=== PATIENT | male | born 1965 | race Caucasian/White ===

== ENCOUNTER 2021-09-07 17:24 | Emergency (ER) | payer MEDICARE, MEDICAID, SELFPAY ==
[2021-09-07 17:38] VITALS: BP 127/76; BP 138/101; PULSE 104; PULSE 115; RESP 18; TEMP 37.3; O2SAT 94; O2SAT 95; BMI 27.3
--- NOTE | 2021-09-07 17:39 | ED_ITS ---
HPI - Male Genitourinary General Chief complaint: Abdominal Pain Stated complaint: difficulty urinating Time Seen by Provider: 09/07/21 17:39 Source: patient Mode of arrival: ambulatory Limitations: no limitations History of Present Illness HPI Narrative: Patient with significant past medical history of Erdhein- Rankin disease hypertension hydrocephalus hyponatremia diabetes anemia encephalopathy, optic neuropathy with history of recurrent UTI started on Augmentin for recent UTI since yesterday patient unable to urinate and is brought here a temperature of 101.4 degrees patient just finished a course of Bactrim last week. No vomiting no abdominal pain Related Data Previous Rx's Medication Instructions Recorded ciprofloxacin HCl 500 mg tablet 500 mg PO BID #20 tab 09/07/21 (Cipro) Allergies Allergy/AdvReac Type Severity Reaction Status Date / Time No Known Allergies Allergy Verified 09/07/21 17:49 Review of Systems Review of Systems: Yes all other systems are reviewed and are negative [facility] Past Medical History Medical History Alternating esotropia Anemia Diabetes Diplopia Encephalopathy Erdheim-Marlon disease HTN (hypertension) Hydrocephalus Hypogonadism in male Hyponatremia Hypothyroidism Iron malabsorption Optic neuropathy of both eyes Osteopenia Pituitary insufficiency Social History Social History Alcohol intake: never Patient Tobacco Use Status: Never used Tobacco Use of substances other than those prescribed or required for medical reasons: No Advance Directives: No Advance Directives Information Provided: No Physical Exam Vital Signs: Vital Signs: Last Vital Signs Temp 99.2 F 09/07/21 18:00 Pulse 103 H 09/07/21 20:00 Resp 18 09/07/21 18:00 BP 92/64 09/07/21 20:00 Pulse Ox 92 09/07/21 20:00 BMI result Body Mass Index 27.3 Appearance: Alert. Oriented X3. Complaining of pain in abdomen Eyes: PERRLA, No Nystagmus ENT: Pharynx normal. Oral Mucosa moist Neck: Normal inspection. Neck supple. CVS: Normal heart rate and rhythm. Pulses normal. Respiratory: No respiratory distress. Equal air entry bilateral, no wheezing/rales/rhonchi Abdomen: Soft and nontender. Bowel sounds are present, no mass palpable, no CVA tenderness Skin: Skin warm and dry. Normal skin color. Normal skin turgor. Extremities: No lower extremity edema. No calf tenderness Neuro: Oriented X 3. No motor deficit. No sensory deficit.No cerebellar signs , cranial nerves II-XII intact MDM - Male Genitourinary Differential Diagnosis Differential diagnosis: Likely urinary tract infection Lab Data Attestation: I reviewed the patient's lab results. Result diagrams: 09/07/21 19:08 09/07/21 19:08 Labs: Lab Results 09/07/21 09/07/21 09/07/21 Range/Units 19:08 19:08 19:08 WBC 16.8 H (4.8-10.8) X10*3/uL RBC 5.03 (4.60-5.80) X10*6/uL Hgb 13.7 L (14.0-18.0) g/dl Hct 43.4 (42.0-52.0) % MCV 86.3 (80.0-98.0) fL MCH 27.2 (27.0-33.0) pg MCHC 31.6 (31.0-36.0) g/dl RDW 16.8 H (11.0-16.0) % Plt Count 336 (160-400) X10*3/uL MPV 8.8 L (9.4-12.4) fL Immature Gran % (Auto) 1.0 H (0.0-0.4) % Neut % (Auto) 66.5 (45-73) % Lymph % (Auto) 22.4 (20-40) % [place] % (Auto) 7.3 (2-11) % Eos % (Auto) 2.0 (0-4) % Baso % (Auto) 0.8 (0-2) % Lymph # (Auto) 3.8 (1.2-4.9) X10*3/uL [place] # (Auto) 1.2 (0.1-1.2) X10*3/uL Eos # (Auto) 0.3 (0.0-0.4) X10*3/uL Baso # (Auto) 0.1 (0.0-0.2) X10*3/uL Abs Immat Gran (auto) 0.17 H (0.00-0.03) X10*3/uL Absolute Neuts (auto) 11.2 H (2.0-8.3) x10*3/uL Absolute Nucleated RBC 0.000 (0.0-0.012) X10*3/uL Nucleated RBC % (auto) 0.0 (0.0-0.2) /100WBC Sodium 139 (135-145) mmol/L Potassium 4.6 (3.3-5.1) mmol/L Chloride 107 (96-108) mmol/L Carbon Dioxide 25 (22-29) mmol/L Anion Gap 12 (12-20) BUN 24 H (9-16) mg/dL Creatinine 1.57 H (0.5-1.4) mg/dL Estim Creat Clear Calc 51.2 Estimated GFR 46 Random Glucose 97 (60-115) mg/dL Lactic Acid 1.0 (0.5-2.0) mmol/L Calcium 8.4 (8.4-10.2) mg/dL Total Bilirubin 0.5 (0.0-1.0) mg/dL AST 17 (5-37) U/L ALT 20 (0-40) U/L Alkaline Phosphatase 93 (39-117) U/L Total Protein 6.9 (6.5-8.0) g/dL Albumin 3.6 (3.5-5.0) g/dL Urine Color Urine Appearance Urine pH (5.0-8.0) Ur Specific [place] (1.005-1.025) Urine Protein (NEG-TRACE) MG/DL Urine Glucose (UA) (NEG) MG/DL Urine Ketones (NEG) MG/DL Urine Blood (NEG) Urine Nitrite (NEG) Ur Leukocyte Esterase (NEG) Urine RBC (0) /HPF Urine WBC (0-4) /HPF Ur Squamous Epith Cells /LPF Urine Bacteria /LPF COVID-19 (ELENO) (Negative) COVID-19 Clin Com 09/07/21 09/07/21 Range/Units 19:08 20:12 WBC (4.8-10.8) X10*3/uL RBC (4.60-5.80) X10*6/uL Hgb (14.0-18.0) g/dl Hct (42.0-52.0) % MCV (80.0-98.0) fL MCH (27.0-33.0) pg MCHC (31.0-36.0) g/dl RDW (11.0-16.0) % Plt Count (160-400) X10*3/uL MPV (9.4-12.4) fL Immature Gran % (Auto) (0.0-0.4) % Neut % (Auto) (45-73) % Lymph % (Auto) (20-40) % [place] % (Auto) (2-11) % Eos % (Auto) (0-4) % Baso % (Auto) (0-2) % Lymph # (Auto) (1.2-4.9) X10*3/uL [place] # (Auto) (0.1-1.2) X10*3/uL Eos # (Auto) (0.0-0.4) X10*3/uL Baso # (Auto) (0.0-0.2) X10*3/uL Abs Immat Gran (auto) (0.00-0.03) X10*3/uL Absolute Neuts (auto) (2.0-8.3) x10*3/uL Absolute Nucleated RBC (0.0-0.012) X10*3/uL Nucleated RBC % (auto) (0.0-0.2) /100WBC Sodium (135-145) mmol/L Potassium (3.3-5.1) mmol/L Chloride (96-108) mmol/L Carbon Dioxide (22-29) mmol/L Anion Gap (12-20) BUN (9-16) mg/dL Creatinine (0.5-1.4) mg/dL Estim Creat Clear Calc Estimated GFR Random Glucose (60-115) mg/dL Lactic Acid (0.5-2.0) mmol/L Calcium (8.4-10.2) mg/dL Total Bilirubin (0.0-1.0) mg/dL AST (5-37) U/L ALT (0-40) U/L Alkaline Phosphatase (39-117) U/L Total Protein (6.5-8.0) g/dL Albumin (3.5-5.0) g/dL Urine Color ORANGE A Urine Appearance HAZY Urine pH 7.0 (5.0-8.0) Ur Specific [place] 1.020 (1.005-1.025) Urine Protein 3+ H (NEG-TRACE) MG/DL Urine Glucose (UA) 100 H (NEG) MG/DL Urine Ketones NEG (NEG) MG/DL Urine Blood 3+ H (NEG) Urine Nitrite POS H (NEG) Ur Leukocyte Esterase 2+ H (NEG) Urine RBC 50-75 H (0) /HPF Urine WBC TNTC H (0-4) /HPF Ur Squamous Epith Cells NONE /LPF Urine Bacteria TRACE /LPF COVID-19 (ELENO) Negative (Negative) COVID-19 Clin Com See Note Discharge Plan Discharge Clinical Impression: UTI (urinary tract infection), Acute urinary retention Patient Disposition: Home, Self-Care Instructions: Urinary Retention in Men (ED), Urinary Tract Infection in Men (DC ) Additional Instructions: Care of Abdul catheter as advised Follow-up with PCP to remove the Abdul catheter after end of antibiotic course Report to the ER/PCP if high fever vomiting not feeling good Take antibiotics as prescribed Prescriptions: New ciprofloxacin HCl [Cipro] 500 mg tablet 500 mg PO BID Qty: 20 0RF Interventions: ED Discharge Assessment Last Done: 09/07/21 21:50 Discharge Date/Time: 09/07/21 21:50
[2021-09-07 18:00] VITALS: BP 127/76; PULSE 104; RESP 18; TEMP 37.3; O2SAT 94
[2021-09-07] MEDS: 0.9 % Sodium Chloride 1,000 ML 999 ML IV (19:04)
[2021-09-07 19:15] LABS: Basophils Absolute Auto 0.1 X10*3/uL (0.0-0.2); Basophils Percent Auto 0.8 % (0-2); Eosinophils Absolute Auto 0.3 X10*3/uL (0.0-0.4); Hematocrit 43.4 % (42.0-52.0); Hemoglobin 13.7 g/dl (14.0-18.0); Imm Gran Abs Auto 0.17 X10*3/uL (0.00-0.03); Lymphocytes Absolute Auto 3.8 X10*3/uL (1.2-4.9); Lymphocytes Percent Auto 22.4 % (20-40); MANUAL DIFF FLAG NO; Mean Corpuscular HGB Conc 31.6 g/dl (31.0-36.0); Mean Corpuscular Hemoglobin 27.2 pg (27.0-33.0); Mean Corpuscular Volume 86.3 fL (80.0-98.0); Mean Platelet Volume 8.8 fL (9.4-12.4); Monocytes Absolute Auto 1.2 X10*3/uL (0.1-1.2); Monocytes Percent Auto 7.3 % (2-11); Neutrophils Absolute Auto 11.2 x10*3/uL (2.0-8.3); Neutrophils Percent Auto 66.5 % (45-73); Platelet Count 336 X10*3/uL (160-400); Red Blood Count 5.03 X10*6/uL (4.60-5.80); Red Cell Distribution Width 16.8 % (11.0-16.0); White Blood Count 16.8 X10*3/uL (4.8-10.8)
[2021-09-07 19:32] LABS: Alanine Aminotransferase 20 U/L (0-40); Albumin Level 3.6 g/dL (3.5-5.0); Alkaline Phosphatase 93 U/L (39-117); Anion Gap 12 (12-20); Aspartate Amino Transferase 17 U/L (5-37); Bilirubin Total 0.5 mg/dL (0.0-1.0); Blood Urea Nitrogen 24 mg/dL (9-16); Calcium 8.4 mg/dL (8.4-10.2); Carbon Dioxide 25 mmol/L (22-29); Chloride 107 mmol/L (96-108); Creatinine Clr Calc Pharmacy 51.2; Estimated Glomerular Filt Rate 46; Glucose Random 97 mg/dL (60-115); Potassium 4.6 mmol/L (3.3-5.1); Sodium 139 mmol/L (135-145); Total Protein 6.9 g/dL (6.5-8.0)
[2021-09-07 19:35] LABS: COVID-19 Test Negative (Negative)
[2021-09-07 20:00] VITALS: BP 92/64; PULSE 103; O2SAT 92
--- NOTE | 2021-09-07 20:15 | PC.NURSE ---
pt a&ox3, vss, IV flds started, hou catheter 16F placed, medicated per provider order, will continue to monitor. at bedside.
[2021-09-07] MEDS: cefTRIAXone sodium 1 GM in 0.9 % Sodium Chloride 50 ML IV (20:20)
--- NOTE | 2021-09-07 20:20 | PC.NURSE ---
pt ivf continue to run slowly, pt reminded to keep arm straight, iv antibiotics hung per order
[2021-09-07 20:30] LABS: Appearance Urine HAZY; Color Urine ORANGE; Glucose Urine UA 100 MG/DL (NEG); Leukocyte Esterase Urine 2+ (NEG); Nitrite Urine POS (NEG); UACC Culture Trigger YES; Urine Blood 3+ (NEG); Urine Ketones NEG (NEG); Urine Protein 3+ MG/DL (NEG-TRACE)
[2021-09-07 20:38] LABS: RBC Urine 50-75 /HPF (0); WBC Urine TNTC /HPF (0-4)
[2021-09-07 20:39] LABS: Bacteria Urine TRACE /LPF
== END 2021-09-07 21:50 | disposition home or self-care (01) ==
PROVIDERS: Emergency Provider Internal Medicine
DX: N39.0 Urinary tract infection, site not specified (principal); R33.9 Retention of urine, unspecified; R50.9 Fever, unspecified; Z20.822 Contact with and (suspected) exposure to COVID-19; Z87.440 Personal history of urinary (tract) infections; E11.9 Type 2 diabetes mellitus without complications; I10 Essential (primary) hypertension
CPT/HCPCS: 51702; 80053; 81001; 83605; 85025; 87040; 87086; 87635; 96361; 96374; 99284; 99285; J0696

== ENCOUNTER 2023-04-08 18:35 | Inpatient (IN) | payer MEDICARE, MEDICAID, SELFPAY ==
[2023-04-08] VITALS (10 sets, daily range): BP systolic 74–123; BP diastolic 43–68; PULSE 77–96; RESP 14–19; TEMP 36.6–36.9; O2SAT 96–100; BMI 21.0
--- NOTE | ~2023-04-08 | XR_ITS ---
EXAMINATION: XR CHEST CLINICAL INFORMATION: Hypotension COMPARISON: None available. TECHNIQUE: Frontal view of the chest was obtained. FINDINGS: Ventriculoperitoneal shunt catheter partially visualized coursing over the right chest wall and terminating over the left upper abdomen. Lung volumes with left greater than right basilar reticular opacities, may represent atelectasis. No focal consolidation. No pleural effusion or pneumothorax. Aortic arch calcification with otherwise normal heart size and mediastinal contours. XR/XR chest 1V IMPRESSION: Low lung volumes with left greater than right basilar reticular opacities, likely atelectasis.
--- NOTE | 2023-04-08 19:13 | PC.NURSE ---
Pt BIBA for low BP 80/49, received 350ns bolus prior to arrival. EKG complete, New BP 77/52HR 99, notified.
--- NOTE | 2023-04-08 19:33 | PC.NURSE ---
20 G IV line established in R forearm, labs drawn and sent to lab for processing. 1 L NS running, BP improving 90/56, P 83. Patient denies chest pain/dizziness/lightheadedness/SOB. Patient requested urinal which was provided to patient. Patient's spouse called and informed that she is on her way to ED. Call hancock placed within patient's reach.
--- NOTE | 2023-04-08 19:45 | ED.GENADULT ---
HPI - General Adult General Chief complaint: General Medical Stated complaint: Hypotension Time Seen by Provider: 04/08/23 19:29 Source: patient, EMS and old records reviewed Mode of arrival: EMS Limitations: no limitations History of Present Illness HPI narrative: A 58-year-old male with pertinent past medical history of Erdheim Vigo disease, hypertension, hydrocephalus, hyponatremia, DM, anemia, encephalopathy, optic neuropathy, recurrent UTI, dehydration presented by EMS from home for low blood pressure. Patient declined any subjective fever or chills, no blurry vision, no photophobia, no chest pain, no coughing, no abdominal pain, no nausea, no vomiting, no diarrhea, no dysuria or frequency urination. Related Data Previous Rx's Medication Instructions Recorded ciprofloxacin HCl 500 mg tablet 500 mg PO BID #20 tabs 09/07/21 (Cipro) Allergies Allergy/AdvReac Type Severity Reaction Status Date / Time No Known Allergies Allergy Verified 09/07/21 17:49 Review of Systems Review of Systems: all other systems are reviewed and are negative Constitutional: Reports as per HPI and Reports no additional constitutional complaints Eyes: Reports as per HPI and Reports no additional eye complaints Reports system reviewed and no additional complaints, except as documented Cardiovascular: Reports as per HPI and Reports no additional cardiovascular complaints Respiratory: Reports as per HPI and Reports no additional respiratory complaints Gastrointestinal: Reports as per HPI and Reports no additional gastrointestinal complaints Genitourinary: Reports no additional female genitourinary complaints Musculoskeletal: Reports no additional musculoskeletal complaints Skin/Breast: Reports system reviewed and no additional complaints, except as docu Psychiatric: Reports no additional psychiatric complaints Endocrine: Reports no additional endocrine complaints Hematologic/Lymphatic: Reports no additional hematologic/lymphatic complaints Allergic/Immunologic: Reports no additional allergic/immunologic complaints Reports system reviewed and no additional complaints, except as documented and Reports Abnormal speech present [facility] Past Medical History Medical History HTN (hypertension) Encephalopathy Hyponatremia Hydrocephalus Optic neuropathy of both eyes Diplopia Alternating esotropia Anemia Iron malabsorption Osteopenia Hypothyroidism Diabetes Hypogonadism in male Pituitary insufficiency Erdheim-Vigo disease Social History Social History Alcohol intake: never Patient Tobacco Use Status: Never used Tobacco Smoked in Last 30 Days: No Advance Directives: No Advance Directives Information Provided: Yes Physical Exam ED Vital Signs: Vital Signs - 24 hr 04/08/23 19:04 04/08/23 19:17 04/08/23 19:32 Temperature 98.4 F Pulse Rate 92 96 92 Respiratory Rate 15 19 Blood Pressure 74/43 L 77/52 L 83/56 L Pulse Oximetry 96 98 Oxygen Delivery Method Room Air 04/08/23 19:46 04/08/23 20:19 04/08/23 21:42 Temperature Pulse Rate 79 80 Respiratory Rate 14 Blood Pressure 90/56 L 106/62 113/62 Pulse Oximetry Oxygen Delivery Method 04/08/23 21:49 04/08/23 22:21 Temperature 98.4 F 97.9 F Pulse Rate 81 78 Respiratory Rate 19 15 Blood Pressure 101/68 123/61 Pulse Oximetry 100 99 Oxygen Delivery Method Room Air Room Air BMI result Body Mass Index 21.0 Vital signs have been reviewed and appear to be correct. Blood pressure low. Heart rate normal. Respiratory rate normal. Temperature normal. Oxygen saturation normal. Appearance: Alert. Oriented X3. No acute distress. Head: Normal external exam. Normocephalic. Atraumatic. No Dozier signs noted. No raccoon eyes noted Eyes: PERRLA. EOMI. Conjunctiva and sclera normal. Eyelids normal. ENT: TM's Normal. Pharynx normal. Uvula midline. Moist mucous membranes. No trismus noted. No drooling noted. No muffled voice noted. Neck: Normal inspection. Neck supple. FROM. No adenopathy. Thyroid Normal. No meningeal signs. No neck mass noted. CVS: Normal heart rate and rhythm. Heart sound normal. No murmurs noted. Pulses normal throughout. Respiratory: No respiratory distress. Painless inspiration. Breath sounds normal. No wheezes/rales/rhonchi noted. Chest nontender. No accessory muscle usage noted or decreased air movement noted. Abdomen: Soft and nontender. Bowel sounds normal in all 4 quadrants. No distention noted. No organomegaly noted. No visible injury noted. Back: No CVA tenderness. Full range of motion noted. Skin: Skin warm and dry. Normal skin color. Normal skin turgor. No rashes/lesions/lacerations noted. Extremities: No lower extremity edema. Extremities exhibit normal range of motion. Extremities nontender. Neuro: Oriented X 3. Cranial nerve exam: II-XII are grossly intact No motor deficit. No sensory deficit. Reflexes normal. Course Reevaluation(s) Reevaluation #1: a 58-year-old male who is bedridden with history of Erdheim Vigo disease patient is normally a bed ridden, patient is prone to dehydration and UTI came in with asymptomatic hypotension, patient in ruled into septic shock criteria for elevated heart rate and leukocytosis with hypotension, however hypotension was improved with will L of normal saline given by EMS and 1 L given in the ED. UA with just obtained via straight catheter showing UTI. Will check blood culture and lactic acid and will administer a dose of ceftriaxone And admit. Sepsis protocol was activated. Time: 21:18 Reevaluation #2: FOCUS EXAM: Urosepsis with septic shock due to hypotension, hypotension improved with IV bolus of fluid and IV antibiotic. Patient is awake, alert, oriented. Time: 23:20 Medications Administered Discontinued Medications Generic Name Dose Route Start Last Admin Trade Name Freq PRN Reason Stop Dose Admin Sodium Chloride 1,932 mls @ 1,932 mls/hr 04/08/23 21:16 04/08/23 21:46 Ns 30 ml/kg infuse over 1 hr (1932 ml) 04/08/23 22:15 1,932 mls/hr IV Administration .Q1H STA Ceftriaxone Sodium 1 gm/ 50 mls @ 100 mls/hr 04/08/23 21:16 04/08/23 22:16 Sodium Chloride IV 04/08/23 21:45 Infused ONCE ONE Infusion Lidocaine HCl 10 ml 04/08/23 20:37 04/08/23 21:01 Lidocaine Hcl 2 % Urojet 10 Ml Jel.Pf.Cecelia TOPICAL 04/08/23 20:38 10 ml ONCE ONE Administration Medical Decision Making Differential Diagnosis Differential Diagnoses: The differential diagnosis associated with the presentation includes ( Dehydration, septic shock, UTI, pneumonia, viral infection, electrolyte abnormality, severe anemia.) Admission/Observation Consideration of admission/observation: Escalation of care including admission/observation considered Consult Healthcare Provider Management of the patient was discussed with: Hospitalist (Dr. Haynes) Lab Data MDM Lab Attestation statement: I reviewed the patient's lab results. 04/08/23 19:23 04/08/23 19:23 Labs: Lab Results 04/08/23 04/08/23 04/08/23 Range/Units 19:23 20:57 21:44 WBC 14.0 H (4.8-10.8) X10*3/uL RBC 3.91 L D (4.60-5.80) X10*6/uL Hgb 9.6 L D (14.0-18.0) g/dl Hct 30.2 L D (42.0-52.0) % MCV 77.2 L (80.0-98.0) fL MCH 24.6 L (27.0-33.0) pg MCHC 31.8 (31.0-36.0) g/dl RDW 18.9 H (11.0-16.0) % Plt Count 320 (160-400) X10*3/uL MPV 9.3 L (9.4-12.4) fL Immature Gran % (Auto) 0.8 H (0.0-0.4) % Neut % (Auto) 84.3 H (45-73) % Lymph % (Auto) 6.9 L (20-40) % [place] % (Auto) 7.4 (2-11) % Eos % (Auto) 0.2 (0-4) % Baso % (Auto) 0.4 (0-2) % Lymph # (Auto) 1.0 L (1.2-4.9) X10*3/uL [place] # (Auto) 1.0 (0.1-1.2) X10*3/uL Eos # (Auto) 0.0 (0.0-0.4) X10*3/uL Baso # (Auto) 0.1 (0.0-0.2) X10*3/uL Abs Immat Gran (auto) 0.11 H (0.00-0.03) X10*3/uL Absolute Neuts (auto) 11.8 H (2.0-8.3) x10*3/uL Absolute Nucleated RBC 0.000 (0.0-0.012) X10*3/uL Nucleated RBC % (auto) 0.0 (0.0-0.2) /100WBC Sodium 146 H (135-145) mmol/L Potassium 3.1 L D (3.3-5.1) mmol/L Chloride 128 H (96-108) mmol/L Carbon Dioxide 11 L (22-29) mmol/L Anion Gap 10 L (12-20) BUN 21 H (9-16) mg/dL Creatinine 1.20 (0.5-1.4) mg/dL Estim Creat Clear Calc 59.6 Estimated GFR > 60 Random Glucose 73 (60-115) mg/dL Lactic Acid 1.3 (0.5-2.0) mmol/L Calcium 6.1 L D (8.4-10.2) mg/dL Total Bilirubin 0.4 (0.0-1.0) mg/dL AST 9 (5-37) U/L ALT 9 (0-40) U/L Alkaline Phosphatase 57 (39-117) U/L Troponin I High Sens < 2.7 (<3.5-35.0) ng/L Total Protein 4.6 L (6.5-8.0) g/dL Albumin 2.2 L (3.5-5.0) g/dL Urine Color Dark Yellow Urine Appearance Turbid Urine pH 6.0 (5.0-9.0) Ur Specific [place] 1.015 (1.005-1.025) Urine Protein 100 (2+) H (Neg-Trace) mg/dL Urine Glucose (UA) Negative (Negative) mg/dL Urine Ketones Negative (Negative) mg/dL Urine Blood Large (3+) H (Negative) Urine Nitrite Negative (Negative) Ur Leukocyte Esterase Large (3+) H (Negative) Urine RBC >20 H (0-2) /HPF Urine WBC >50 H (0-5) /HPF Ur Squamous Epith Cells 0-2 (0-2) /HPF Urine Bacteria 4+ (None Seen) Hyaline Casts 3-5 (0-2) /LPF Independent Interpretation I performed an independent interpretation of an: Plain X-Ray Radiology Impression Discussion of test interpretation with radiology: I have reviewed the radiologist's reading. ( Likely atelectasis is no obvious infiltrate.) Discharge Plan Discharge Clinical Impression: Septic shock, Acute UTI Patient Disposition: Admitted As Inpatient
--- NOTE | 2023-04-08 20:20 | PC.NURSE ---
urinal with pt, explained the importance of getting a urine sample. Pt will try urinal. Refuses straight cath at this time
--- NOTE | 2023-04-08 22:50 | P.HPHOSP_ITS ---
History of Present Illness Date of Service: 04/08/23 Chief Complaint: HypOtension [facility] record reviewed. 58 y.o.?male appearing older and frailer than?his age,?with a history of?Erdheim-Taney disease ( officially diagnosed?in [address] 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) and s/p DISPENSER OPERATOR shunt placement (08/2013, at [facility]), hypertension,?chronic constipation, osteoporosis with numerous compression?fractures, kidney stones s/p cystoscopy & left ureteral stent (06/2022, Dr. Simms), cystoscopy & right ureteral stent x 2 (12/2022, Dr. Obrien; 01/2023, Dr. Cramer), BPH, urinary retention, depression, anxiety, recently admitted to [facility] from 03/04/2023 to 03/06/2023 with urinary retention requiring Abdul catheter placement, ?severe constipation, fecal impaction, hypothermia, autonomic dysfunction. He presents to [facility] by EMS because he noted his blood pressure to be low with SBP in the 60, however assymptomatic, BP in ED was 74/43. Work has revealed UTI, normal lactic, sodium of 146. Blood pressure is now normal following IVF Review of Systems 2 Review of Systems: Gen: no fever Resp: no sob, no cough CV: no chest, no GUAJARDO, no leg edema GI: No n/v, no abd pain Neuro: No confusion, speech is hard to understand but normal [facility] Medical History HTN (hypertension) Encephalopathy Hyponatremia Hydrocephalus Optic neuropathy of both eyes Diplopia Alternating esotropia Anemia Iron malabsorption Osteopenia Hypothyroidism Diabetes Hypogonadism in male Pituitary insufficiency Erdheim-Taney disease Social History Alcohol intake: never Patient Tobacco Use Status: Never used Tobacco Smoked in Last 30 Days: No Advance Directives: No Advance Directives Information Provided: Yes Meds Allergies Allergy/AdvReac Type Severity Reaction Status Date / Time No Known Allergies Allergy Verified 09/07/21 17:49 Home Medications Medication Instructions Recorded Confirmed Last Taken Type desmopressin 10 mcg/spray (0.1 mL) 1 spray intranasal BID 04/08/23 04/08/23 Unknown History nasal spray (non-refrigerated) hydrocortisone 10 mg tablet 10 mg PO BID 04/08/23 04/08/23 Unknown History hydrocortisone 5 mg tablet 7.5 mg PO QPM 04/08/23 04/09/23 Unknown History levothyroxine 125 mcg tablet 125 mcg PO DAILY 04/08/23 04/09/23 Unknown History methenamine hippurate 1 gram tablet 1 g PO BID 04/08/23 04/09/23 Unknown History tamsulosin 0.4 mg capsule 0.8 mg PO DAILY 04/08/23 04/09/23 Unknown History testosterone 1 pump topical QAM 04/08/23 04/09/23 Unknown History Physical Exam 2 Vital Signs and Narrative: Vital Signs: Last Vital Signs Temp 97.9 F 04/08/23 22:21 Pulse 78 04/08/23 22:21 Resp 15 04/08/23 22:21 BP 123/61 04/08/23 22:21 Pulse Ox 99 04/08/23 22:21 O2 Del Method Room Air 04/08/23 22:21 BMI result Body Mass Index 21.0 Const: Other: Constitutional: Alert, in no distress, noticealble dysarthria (normal for him) Mental Status: Oriented to person, place and time. Eyes: legally blind Ear, Nose and Throat: Oropharynx clear, mucous membranes moist. Respiratory: Clear to auscultation. No wheezing, rales or rhonchi. Cardiovascular: S1 S2 regular. No murmurs, rubs or gallops. Gastrointestinal: Abdomen soft, non-tender, non-distended. Normal bowel sounds.? Neurologic: Cranial nerves II-XII grossly intact. No focal neurological deficits. Moves all extremities spontaneously.?known ataxia Skin: No rashes or lesions.? Musculoskeletal: No cyanosis or clubbing. Psychiatric: Normal mood and affect? Results Labs 04/08/23 19:23 04/09/23 05:53 Labs: Laboratory Results - last 24 hr 04/08/23 04/08/23 04/08/23 19:23 20:57 21:44 MCV 77.2 L MCH 24.6 L MCHC 31.8 RDW 18.9 H Plt Count 320 MPV 9.3 L Immature Gran % (Auto) 0.8 H Neut % (Auto) 84.3 H Lymph % (Auto) 6.9 L [place] % (Auto) 7.4 Eos % (Auto) 0.2 Baso % (Auto) 0.4 Lymph # (Auto) 1.0 L [place] # (Auto) 1.0 Eos # (Auto) 0.0 Baso # (Auto) 0.1 Abs Immat Gran (auto) 0.11 H Absolute Neuts (auto) 11.8 H Absolute Nucleated RBC 0.000 Nucleated RBC % (auto) 0.0 Anion Gap 10 L Estim Creat Clear Calc 59.6 Estimated GFR > 60 Random Glucose 73 Lactic Acid 1.3 Calcium 6.1 L D Total Bilirubin 0.4 AST 9 ALT 9 Alkaline Phosphatase 57 Total Protein 4.6 L Albumin 2.2 L Urine Color Dark Yellow Urine Appearance Turbid Urine pH 6.0 Ur Specific [place] 1.015 Urine Protein 100 (2+) H Urine Glucose (UA) Negative Urine Ketones Negative Urine Blood Large (3+) H Urine Nitrite Negative Ur Leukocyte Esterase Large (3+) H Urine RBC >20 H Urine WBC >50 H Ur Squamous Epith Cells 0-2 Urine Bacteria 4+ Hyaline Casts 3-5 Assessment and Plan (1) Acute UTI: Status: Acute (2) Septic shock: Status: Acute Plan 58-year-old male with a past medical history of for Erdheim-Taney disease, panhypopituitarism, dysarthria, hydrocephalus status post DISPENSER OPERATOR shunt, nephrolithiasis, recurrent UTIs,history of urinary retention s/p stent here with UTI, sepsis, hypotension, mild RYLAN, and mild hypernatremia. UTI, septic shock has responded well to IVF+Abx; continue Ceftriaxone, follow cultures Hypotension likely from combination of sepsis, dehydration and autonomic insuficiency, and possible adrenal insuficiency (he's on chronic steroid)now resolved, continue IVF hydration overnight. Mild Hypernatremia-146, IVF and repeat tomorrow Milk RYLAN--early ATN from sepsis and dehydration, IVF and repeat Scr in am Chronic medical conditions resume all meds once med rec completed, but hold BP meds. Med rec pending DVT prophylaxis: Levenox Full code Admit for at least 2 midnights for hypotension, sepsis, UTI, RYLAN Time Spent With Patient Time: Total time managing care of this patient today ____ minutes. Quality Stroke Does the patient have a stroke diagnosis?: No VTE Prior VTE?: No VTE Risk Level:: Medical - moderate - high VTE Device Contraindication: Treatment Not Indicated VTE Drug Contraindication: N/A - Med Ordered
[2023-04-09] VITALS (7 sets, daily range): BP systolic 100–132; BP diastolic 58–82; PULSE 60–116; RESP 15–20; TEMP 36.4–36.9; O2SAT 96–99
--- NOTE | 2023-04-09 06:15 | PC.NURSE ---
pt heart rate increased to 116 denies CP/SOB. All other vitals wnl . Gave pt urinal with no success. Bladder scan showed 421ml of urine, pt attempting to urinate . tiger messaged provider
[2023-04-09 06:37] LABS: Anion Gap 13 (12-20); Blood Urea Nitrogen 23 mg/dL (9-16); Calcium 7.8 mg/dL (8.4-10.2); Carbon Dioxide 15 mmol/L (22-29); Chloride 121 mmol/L (96-108); Estimated Glomerular Filt Rate 50; Glucose Random 98 mg/dL (60-115); Potassium 3.2 mmol/L (3.3-5.1); Sodium 146 mmol/L (135-145)
--- NOTE | 2023-04-09 07:05 | PHA.MEDREC ---
Pharmacy Consult ? Medication Reconciliation Pharmacy has completed the medication reconciliation. Reviewed med rec done by nursing who annotated they spoke to patient's spouse.
--- NOTE | 2023-04-09 07:25 | PC.NURSE ---
bed side swallow performed, pt did cough some with the water but states this is his basline
--- NOTE | 2023-04-09 07:28 | PC.NURSE ---
pt is alert and answering questions appropriately, speech is slightly slow and muffled but this is at baseline, skin pwd, respirations even and unlabored, ls clear, pt's abd soft and non-tender, pt denies pain, hou cath in place and draining well about 700ml of yellow urine, normal sinus on the monitor ranges from 100-115
[2023-04-09 08:13] LABS: Iron 7 mcg/dL (45-160); Percent Iron Saturation 4 % (15-50); Total Iron Binding Capacity 179 mcg/dL (228-428); Unsaturated Iron Binding 172 ug/dL
--- NOTE | 2023-04-09 12:23 | MHC.CM.PN ---
CM attempted to reach Patient via his cell phone but instead reached Patient's /HCP/Kat. Per Kat's request, IMM will be mailed to her d/t Patient being Legally Blind(a copy will also be placed on the chart). Patient lives in a house with his and his Wxiyay-lf-Hid and he mostly uses a w/c for mobility. Home self care vs new vna is the tentative plan and CM has initiated and will follow for dc planning. PCP is Dr. Hal Valles.
--- NOTE | 2023-04-09 13:01 | HO.PM.IMPN ---
Subjective Subjective Date of Service: 04/09/23 Interval History: Seen and evaluated Alert and interactive Denies any fever or chills Review of Systems Review of Systems: Yes all other systems are reviewed and are negative Physical Exam Vital Signs: Vital Signs: Last Vital Signs Temp 98.4 F 04/09/23 06:07 Pulse 97 04/09/23 09:43 Resp 18 04/09/23 09:43 BP 104/66 04/09/23 09:43 Pulse Ox 99 04/09/23 09:43 O2 Del Method Room Air 04/09/23 09:43 O2 Flow Rate 97 04/09/23 06:07 BMI result Body Mass Index 21.0 Const: Other: Constitutional: Alert, in no distress, frail looking, dysarthria (baseline) Mental Status: Oriented to person, place and time. Eyes: legally blind Respiratory: Clear to auscultation. No wheezing, rales or rhonchi. Cardiovascular: S1 S2 regular. No murmurs, rubs or gallops. Gastrointestinal: Abdomen soft, non-tender, non-distended. Normal bowel sounds.? Neurologic: Cranial nerves II-XII grossly intact. No focal neurological deficits. Moves all extremities spontaneously.?known ataxia Skin: No rashes or lesions.? Psychiatric: Normal mood and affect? Objective Data Active Medications Acetaminophen (Acetaminophen 325 Mg Tablet) 650 mg PO Q6H PRN PRN Reason: Pain, Mild (Pain Scale 1-3) Last Admin: 04/09/23 02:20 Dose: 650 mg Documented By: DAWIT Desmopressin Acetate (Desmopressin Acetate Nasal 10 Mcg/0.1 Ml [place].Pump) 1 spray NOSTRIL-L BID [facility] Last Admin: 04/09/23 10:08 Dose: 1 spray Documented By: NIC Docusate Sodium (Docusate Sodium 100 Mg Capsule) 100 mg PO DAILY PRN PRN Reason: Constipation Enoxaparin Sodium (Enoxaparin Sodium 40 Mg/0.4 Ml Syringe) 40 mg SUBCUT Q24H [facility] Last Admin: 04/09/23 09:41 Dose: 40 mg Documented By: NIC Hydrocortisone (Hydrocortisone 10 Mg Tablet) 10 mg PO DAILY [facility] Last Admin: 04/09/23 10:08 Dose: 10 mg Documented By: NIC Dextrose/Sodium Chloride (D51/2ns) 1,000 mls @ 100 mls/hr IVCONT .Q10H [facility] Last Admin: 04/09/23 11:01 Dose: 100 mls/hr Documented By: NIC Ceftriaxone Sodium 1 gm/ (Sodium Chloride) 50 mls @ 100 mls/hr IV Q24H [facility] Levothyroxine Sodium (Levothyroxine Sodium 125 Mcg Tablet) 125 mcg PO MoTuWeThFrSa@0600 [facility] Last Admin: 04/09/23 07:36 Dose: Not Given Documented By: NIC Non-Admin Reason: Duplicate Order Magnesium Hydroxide (Milk Of Magnesia 30 Ml Oral.Susp) 30 ml PO DAILY PRN PRN Reason: Constipation Melatonin (Melatonin 3 Mg Tablet) 6 mg PO BEDTIME PRN PRN Reason: Insomnia Methenamine Hippurate (Methenamine Hippurate 1 Gm Tablet) 1 gm PO BID [facility] Last Admin: 04/09/23 10:08 Dose: 1 gm Documented By: NIC Non-Formulary Medication (Hydrocortisone) 7.5 mg PO QPM [facility] Non-Formulary Medication (Testosterone) 1 pump TOPICAL QAM [facility] Ondansetron HCl (Ondansetron Hcl 4 Mg/2 Ml Vial) 4 mg IVPUSH Q8H PRN PRN Reason: Nausea and Vomiting Sodium Chloride (0.9 % Sodium Chloride Flush 3 Ml Syringe) 3 ml IVFLUSH QSHIFT [facility] Last Admin: 04/09/23 07:17 Dose: 3 ml Documented By: NIC Tamsulosin HCl (Tamsulosin Hcl 0.4 Mg Capsule) 0.8 mg PO DAILY [facility] Last Admin: 04/09/23 09:41 Dose: 0.8 mg Documented By: NIC Labs 04/08/23 19:23 04/09/23 05:53 Labs: Laboratory Results - last 24 hr 04/08/23 04/08/23 04/08/23 19:23 20:57 21:44 MCV 77.2 L MCH 24.6 L MCHC 31.8 RDW 18.9 H Plt Count 320 MPV 9.3 L Immature Gran % (Auto) 0.8 H Neut % (Auto) 84.3 H Lymph % (Auto) 6.9 L [place] % (Auto) 7.4 Eos % (Auto) 0.2 Baso % (Auto) 0.4 Lymph # (Auto) 1.0 L [place] # (Auto) 1.0 Eos # (Auto) 0.0 Baso # (Auto) 0.1 Abs Immat Gran (auto) 0.11 H Absolute Neuts (auto) 11.8 H Absolute Nucleated RBC 0.000 Nucleated RBC % (auto) 0.0 Hold Purple Top Anion Gap 10 L Estim Creat Clear Calc 59.6 Estimated GFR > 60 Random Glucose 73 Lactic Acid 1.3 Calcium 6.1 L D Iron TIBC % Saturation Unsat Iron Binding Total Bilirubin 0.4 AST 9 ALT 9 Alkaline Phosphatase 57 Total Protein 4.6 L Albumin 2.2 L Hold Green Top Urine Color Dark Yellow Urine Appearance Turbid Urine pH 6.0 Ur Specific [place] 1.015 Urine Protein 100 (2+) H Urine Glucose (UA) Negative Urine Ketones Negative Urine Blood Large (3+) H Urine Nitrite Negative Ur Leukocyte Esterase Large (3+) H Urine RBC >20 H Urine WBC >50 H Ur Squamous Epith Cells 0-2 Urine Bacteria 4+ Hyaline Casts 3-5 04/08/23 04/09/23 23:57 05:53 MCV MCH MCHC RDW Plt Count MPV Immature Gran % (Auto) Neut % (Auto) Lymph % (Auto) [place] % (Auto) Eos % (Auto) Baso % (Auto) Lymph # (Auto) [place] # (Auto) Eos # (Auto) Baso # (Auto) Abs Immat Gran (auto) Absolute Neuts (auto) Absolute Nucleated RBC Nucleated RBC % (auto) Hold Purple Top SEE NOTE Anion Gap 13 Estim Creat Clear Calc 50.0 Estimated GFR 50 Random Glucose 98 Lactic Acid 1.2 Calcium 7.8 L D Iron 7 L TIBC 179 L % Saturation 4 L Unsat Iron Binding 172 Total Bilirubin AST ALT Alkaline Phosphatase Total Protein Albumin Hold Green Top Cancelled Urine Color Urine Appearance Urine pH Ur Specific [place] Urine Protein Urine Glucose (UA) Urine Ketones Urine Blood Urine Nitrite Ur Leukocyte Esterase Urine RBC Urine WBC Ur Squamous Epith Cells Urine Bacteria Hyaline Casts Microbiology Microbiology Results: Microbiology 04/08/23 Unknown Urine Culture - Preliminary Urine Catheterized - Straight Catheter No growth to date. 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 Severe sepsis 2/2 UTI, Negative LA responded well to IVF continue Ceftriaxone follow cultures Hypotension 2/2 sepsis, dehydration and autonomic insuficiency, and adrenal insuficiency continue IVF monitor BP Mild Hypernatremia Na 146, IVF and repeat BMP RYLAN 2/2 sepsis and dehydration Improving IVF follow BMP mild hypokalemia give replacement and follow BMP Resume rest of home meds DVT prophylaxis: Levenox Full code Admit for overnight for sepsis, UTI, RYLAN pending clinical improvement Time Spent With Patient Time: Total time managing care of this patient today ____ minutes. Quality Stroke Does the patient have a stroke diagnosis?: No VTE Prior VTE?: No VTE Risk Level:: Medical - moderate - high VTE Device Contraindication: Treatment Not Indicated VTE Drug Contraindication: N/A - Med Ordered
--- NOTE | 2023-04-09 20:48 | MHC.EDTECH ---
THIS PCT ASSUMED CARE OF PT AT 1900 ,VITALS TAKEN ,PT WAS REPOSITION AND BOOSTED UP IN BED ,PT COMFORTABLE AT THIS TIME ,NO APPARENT DISTRESS ,WILL CONTINUE TO MONITOR .
--- NOTE | 2023-04-09 22:20 | MHC.EDTECH ---
PATIENT WAS ASSISTED UNTO BED [place] ,HAD LG SOFT BOWEL MOVEMENT ,CARE GIVEN AND WARM BLANKET ,PT COMFORTABLE ,NO APPARENT DISTRESS AT THIS TIME ,WILL CONTINUE TO MONITOR .
--- NOTE | 2023-04-09 22:20 | PC.NURSE ---
pt tolerated medications crushed in applesauce well
[2023-04-10 00:52] VITALS: BP 131/63; PULSE 57; RESP 16; TEMP 36.1; O2SAT 97
[2023-04-10 03:40] VITALS: BP 115/55; PULSE 57; RESP 14; TEMP 36; O2SAT 100
[2023-04-10 07:14] VITALS: BP 131/62; PULSE 56; RESP 16; TEMP 36; O2SAT 99
--- NOTE | 2023-04-10 11:06 | HE.PHANOTE ---
Patient own testosterone will be load in S3E pyxis. Medication is open, unable to determine amount left in bottle. RN will need to inform patient if more will be needed will he is inpatient.
--- NOTE | 2023-04-10 11:34 | HO.PM.IMPN ---
Subjective Subjective Date of Service: 04/10/23 Interval History: Seen and evaluated Alert and interactive increasing leukocytosis BP good Denies any fever or chills Review of Systems Review of Systems: Yes all other systems are reviewed and are negative Physical Exam Vital Signs: Vital Signs: Last Vital Signs Temp 96.8 F 04/10/23 07:14 Pulse 56 04/10/23 07:14 Resp 16 04/10/23 07:14 BP 131/62 04/10/23 07:14 Pulse Ox 99 04/10/23 07:14 O2 Del Method Room Air 04/10/23 07:14 O2 Flow Rate 97 04/09/23 06:07 BMI result Body Mass Index 21.0 Const: Other: Constitutional: Alert, in no distress, frail looking, dysarthria (baseline) Mental Status: Oriented to person, place and time. Eyes: legally blind Respiratory: Clear to auscultation. No wheezing, rales or rhonchi. Cardiovascular: S1 S2 regular. No murmurs, rubs or gallops. Gastrointestinal: Abdomen soft, non-tender, non-distended. Normal bowel sounds.? Neurologic: Cranial nerves II-XII grossly intact. No focal neurological deficits. Moves all extremities spontaneously.?known ataxia Skin: No rashes or lesions.? Psychiatric: Normal mood and affect? Objective Data Active Medications Acetaminophen (Acetaminophen 325 Mg Tablet) 650 mg PO Q6H PRN PRN Reason: Pain, Mild (Pain Scale 1-3) Last Admin: 04/09/23 02:20 Dose: 650 mg Documented By: DAWIT Desmopressin Acetate (Desmopressin Acetate Nasal 10 Mcg/0.1 Ml [place].Pump) 1 spray NOSTRIL-L BID [facility] Last Admin: 04/10/23 09:22 Dose: 1 spray Documented By: [place] Docusate Sodium (Docusate Sodium 100 Mg Capsule) 100 mg PO DAILY PRN PRN Reason: Constipation Enoxaparin Sodium (Enoxaparin Sodium 40 Mg/0.4 Ml Syringe) 40 mg SUBCUT Q24H [facility] Last Admin: 04/10/23 09:21 Dose: 40 mg Documented By: [place] Hydrocortisone (Hydrocortisone 10 Mg Tablet) 10 mg PO DAILY [facility] Last Admin: 04/10/23 09:21 Dose: 10 mg Documented By: [place] Dextrose/Sodium Chloride (D51/2ns) 1,000 mls @ 100 mls/hr IVCONT .Q10H [facility] Stop: 04/10/23 22:00 Last Admin: 04/10/23 05:16 Dose: 100 mls/hr Documented By: CATHI Ceftriaxone Sodium 1 gm/ (Sodium Chloride) 50 mls @ 100 mls/hr IV Q24H [facility] Last Infusion: 04/09/23 21:29 Dose: Infused Documented By: ALEJANDRINA Iron Sucrose 200 mg/ Sodium (Chloride) 110 mls @ 440 mls/hr IV DAILY@1700 [facility] Stop: 04/11/23 17:14 Last Infusion: 04/09/23 19:20 Dose: Infused Documented By: ALEJANDRINA Potassium Chloride (Potassium Chloride/H20) 10 meq in 100 mls @ 100 mls/hr IV Q1H [facility] Stop: 04/10/23 11:59 Last Admin: 04/10/23 10:28 Dose: 100 mls/hr Documented By: [place] Levothyroxine Sodium (Levothyroxine Sodium 125 Mcg Tablet) 125 mcg PO MoTuWeThFrSa@0600 [facility] Last Admin: 04/10/23 05:16 Dose: 125 mcg Documented By: CATHI Magnesium Hydroxide (Milk Of Magnesia 30 Ml Oral.Susp) 30 ml PO DAILY PRN PRN Reason: Constipation Melatonin (Melatonin 3 Mg Tablet) 6 mg PO BEDTIME PRN PRN Reason: Insomnia Methenamine Hippurate (Methenamine Hippurate 1 Gm Tablet) 1 gm PO BID [facility] Last Admin: 04/10/23 09:21 Dose: 1 gm Documented By: [place] Pt Own ( Hydrocortisone 5 Mg Tablet) 7.5 mg PO BEDTIME [facility] Last Admin: 04/09/23 22:06 Dose: 7.5 mg Documented By: ALEJANDRINA Pt Own (Testosterone 20.25 Mg/1.25 Gram (1.62 %) Gel In Metered-Dose Pum 1 pump TOPICAL DAILY [facility] Last Admin: 04/10/23 09:52 Dose: 1 pump Documented By: [place] Ondansetron HCl (Ondansetron Hcl 4 Mg/2 Ml Vial) 4 mg IVPUSH Q8H PRN PRN Reason: Nausea and Vomiting Sodium Bicarbonate (Sodium Bicarbonate 650 Mg Tablet) 650 mg PO BID [facility] Last Admin: 04/10/23 09:21 Dose: 650 mg Documented By: [place] Sodium Chloride (0.9 % Sodium Chloride Flush 3 Ml Syringe) 3 ml IVFLUSH QSHIFT [facility] Last Admin: 04/10/23 07:20 Dose: Not Given Documented By: [place] Non-Admin Reason: IV Running Tamsulosin HCl (Tamsulosin Hcl 0.4 Mg Capsule) 0.8 mg PO DAILY [facility] Last Admin: 04/10/23 09:21 Dose: 0.8 mg Documented By: [place] Labs 04/10/23 05:42 04/10/23 05:42 Labs: Laboratory Results - last 24 hr 04/09/23 04/10/23 14:26 05:42 MCV 80.0 MCH 24.0 L MCHC 30.0 L RDW 18.9 H Plt Count 386 MPV 9.9 Absolute Nucleated RBC 0.000 Nucleated RBC % (auto) 0.0 Hold Purple Top SEE NOTE Anion Gap 13 13 Estim Creat Clear Calc 53.3 70.1 Estimated GFR 54 > 60 Random Glucose 153 H 113 Calcium 8.0 L 7.8 L Microbiology Microbiology Results: Microbiology 04/08/23 Unknown Urine Culture - Final Urine Catheterized - Straight Catheter No growth. 04/08/23 21:57 Blood Culture - Preliminary Blood - Venous No growth after 24 hours. 04/08/23 21:44 Blood Culture - Preliminary Blood - Venous No growth after 24 hours. 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 Severe sepsis 2/2 UTI, Negative LA follow cultures responded well to IVF continue Ceftriaxone Hypotension 2/2 sepsis, dehydration and autonomic insuficiency, and adrenal insuficiency continue IVF on home dose hydrocortisone monitor BP Mild Hypernatremia Na 144 IVF and repeat BMP RYLAN 2/2 sepsis and dehydration Improving IVF follow BMP mild hypokalemia give replacement and follow BMP Resume rest of home meds DVT prophylaxis: Levenox Full code Admit for overnight for sepsis, UTI, RYLAN pending clinical improvement Time Spent With Patient Time: Total time managing care of this patient today ____ minutes. Quality Stroke Does the patient have a stroke diagnosis?: No VTE Prior VTE?: No VTE Risk Level:: Medical - moderate - high VTE Device Contraindication: Treatment Not Indicated VTE Drug Contraindication: N/A - Med Ordered
[2023-04-10 11:42] VITALS: BP 146/67; PULSE 65; RESP 16; TEMP 36; O2SAT 98
[2023-04-10 15:51] VITALS: BP 129/73; PULSE 67; RESP 20; TEMP 36; O2SAT 98
[2023-04-10 19:55] VITALS: BP 138/75; PULSE 63; RESP 18; TEMP 36; O2SAT 98
[2023-04-11] VITALS: BP 150/82; PULSE 80; RESP 18; TEMP 36.1; O2SAT 98
[2023-04-11 03:37] VITALS: BP 138/71; PULSE 80; RESP 19; TEMP 36.1; O2SAT 98
[2023-04-11 07:21] LABS: Hematocrit 31.2 % (42.0-52.0); Hemoglobin 9.5 g/dl (14.0-18.0); Mean Corpuscular HGB Conc 30.4 g/dl (31.0-36.0); Mean Corpuscular Hemoglobin 23.6 pg (27.0-33.0); Mean Corpuscular Volume 77.4 fL (80.0-98.0); Mean Platelet Volume 10.1 fL (9.4-12.4); Platelet Count 383 X10*3/uL (160-400); Red Blood Count 4.03 X10*6/uL (4.60-5.80); Red Cell Distribution Width 18.7 % (11.0-16.0); White Blood Count 13.1 X10*3/uL (4.8-10.8)
[2023-04-11 07:23] VITALS: BP 130/69; PULSE 75; RESP 18; TEMP 36.1; O2SAT 99
[2023-04-11 11:30] VITALS: BP 132/71; PULSE 85; RESP 18; TEMP 36.3; O2SAT 98
--- NOTE | 2023-04-11 12:46 | PM.DS ---
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 by evaluation at [facility], after having had progressive symptoms since the ; 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, non-Langerhans histiocytic myeloid progenitor neoplasm, 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 involvement, followed by [facility] in [place],?on a clinical trial medication?-?Cobimetinib) with sequelae of?panhypopituitarism, hypothyroidism , ypogonadism, diabetes insipidus, cerebellar ataxia, optic neuropathy (legally blind), ?dysarthria, ?autonomic dysfunction, hydrocephalus s/p?left cerebellar mass resection (07/2011, at [facility]) and s/p SENIOR CORPORATE RECRUITER shunt placement (08/2013, at [facility]), hypertension,?chronic constipation, osteoporosis with numerous compression?fractures, kidney stones s/p cystoscopy & left ureteral stent (06/2022, Dr. Simms), cystoscopy & right ureteral stent x 2 (12/2022, Dr. Obrien; 01/2023, Dr. Cramer), BPH, urinary retention, depression, anxiety, recently admitted to [facility] from 03/04/2023 to 03/06/2023 with urinary retention requiring Abdul catheter placement, ?severe constipation, fecal impaction, hypothermia, autonomic dysfunction. He [place] [facility] [place] because he noted his blood pressure to be low with SBP in the 60, however assymptomatic, BP in ED was 74/43. Work has revealed UTI, normal lactic, sodium of 146. Blood pressure is now normal following IVF Hospital course # Severe sepsis 2/2 UTI, Treated with IV antibiotics as cultures remained negative. To be discharge on PO Ceftin. # Hypotension 2/2 sepsis, dehydration and autonomic insuficiency, and adrenal insuficiency that improved with IV fluids and home dose hydrocortisone. # Mild Hypernatremia from dehydration. Improved with IVF and repeat BMP # RYLAN 2/2 sepsis and dehydration that responded well to IVF as creatinine improved back to normal. noted to have low bicarb but no acidemia. to be discharged on sodium bicarb tablets and follow BMP as outpatient # mild hypokalemia given replacement with good response. # Anemia. Start on Iron supplement. Continue Ceftin as prescribed Continue Sodium bicarb Continue Iron supplement Time Spent with Patient Time attestation: Total time managing care of this patient today ____ minutes. Discharge coordination time: Greater than 30 minutes Quality: Safe Use of Opioids Does Pt have an Active Cancer Diagnosis on the Problem List?: No Quality: Stroke Does the patient have a stroke diagnosis?: No Physical Exam Vital Signs: Vital Signs: Last Vital Signs Temp 97.4 F 04/11/23 11:30 Pulse 85 04/11/23 11:30 Resp 18 04/11/23 11:30 BP 132/71 04/11/23 11:30 Pulse Ox 98 04/11/23 11:30 O2 Del Method Room Air 04/11/23 11:30 O2 Flow Rate 97 04/09/23 06:07 BMI result Body Mass Index 21.0 Const: Other: Constitutional: Alert, in no distress, frail looking, dysarthria (baseline) Mental Status: Oriented to person, place and time. Eyes: legally blind Respiratory: Clear to auscultation. No wheezing, rales or rhonchi. Cardiovascular: S1 S2 regular. No murmurs, rubs or gallops. Gastrointestinal: Abdomen soft, non-tender, non-distended. Normal bowel sounds.? Neurologic: Cranial nerves II-XII grossly intact. No focal neurological deficits. Moves all extremities spontaneously.?known ataxia Skin: No rashes or lesions.? Psychiatric: Normal mood and affect? DS: Data Data Completed and Pending Labs on day of discharge: Laboratory Results - last 24 hr 04/11/23 06:12 WBC 13.1 H RBC 4.03 L Hgb 9.5 L Hct 31.2 L MCV 77.4 L MCH 23.6 L MCHC 30.4 L RDW 18.7 H Plt Count 383 MPV 10.1 Absolute Nucleated RBC 0.000 Nucleated RBC % (auto) 0.0 Sodium 143 Potassium 2.8 L Chloride 116 H Carbon Dioxide 15 L Anion Gap 15 BUN 13 Creatinine 0.88 Estim Creat Clear Calc 81.3 Estimated GFR > 60 Random Glucose 69 Calcium 7.5 L Preliminary micro results at discharge 04/08/23 21:57 Blood Culture - Preliminary Blood - Venous No growth after 48 hours. 04/08/23 21:44 Blood Culture - Preliminary Blood - Venous No growth after 48 hours. Discharge Plan Discharge Anticipated Discharge Date/Time: 04/11/23 12:00 Patient Disposition: Home, Self-Care Discharge Diagnosis: Severe sepsis Urine infection Electrolytes imbalance Referrals: Hal Valles MD [Primary Care Provider] - 1 Week Discharge Medications: New sodium bicarbonate 650 mg Tablet 650 mg PO BID Qty: 20 0RF ferrous sulfate 324 mg (65 mg iron) tablet,delayed release (DR/EC) 324 mg PO DAILY Qty: 30 0RF cefuroxime axetil 500 mg tablet 500 mg PO BID Qty: 10 0RF Continued hydrocortisone 5 mg tablet 7.5 mg PO BEDTIME desmopressin 10 mcg/spray (0.1 mL) spray with pump 1 spray intranasal BID methenamine hippurate 1 gram tablet 1 g PO BID tamsulosin 0.4 mg capsule 0.8 mg PO DAILY levothyroxine 125 mcg tablet 125 mcg PO DAILY hydrocortisone 10 mg tablet 10 mg PO BID testosterone 20.25 mg/1.25 gram (1.62 %) gel in metered-dose pump 1 pump topical QAM Discharge Orders: Discharge Order (Routine); Ordered 04/11/23 Ordered By: Hao Cerda Diet: Advance to usual diet Activity on Discharge: As tolerated Stand Alone Forms: Patient Portal Discharge page Other Ambulatory Orders: Basic Metabolic Panel (Routine) Timeframe: 1 Week Facility: [facility] - Location: Laboratory Ordered By: Hao Cerda Care Plan Goals: Read below Health Concerns: Read below Plan of Treatment: Read below Assessment: Continue Ceftin as prescribed Continue Sodium bicarb Continue Iron supplement
[2023-04-11 13:58] LABS: Anion Gap 15 (12-20); Blood Urea Nitrogen 12 mg/dL (9-16); Carbon Dioxide 16 mmol/L (22-29); Chloride 117 mmol/L (96-108); Estimated Glomerular Filt Rate > 60; Glucose Random 85 mg/dL (60-115); Potassium 3.7 mmol/L (3.3-5.1); Sodium 144 mmol/L (135-145)
--- NOTE | 2023-04-11 14:41 | MHC.CM.PN ---
PT WILL DC HOME TODAY WITH NO SERVICES VIA PRIVATE TRANSPORT
[2023-04-11 16:00] VITALS: BP 119/67; PULSE 68; RESP 18; TEMP 36.3; O2SAT 100
--- NOTE | 2023-04-11 18:01 | HO.PM.IMPN ---
Subjective Subjective Date of Service: 04/11/23 Interval History: Seen and evaluated Alert and interactive was ready to dc but is not passing urine after removal of Abdul lose stools Denies any fever or chills Review of Systems Review of Systems: Yes all other systems are reviewed and are negative Physical Exam Vital Signs: Vital Signs: Last Vital Signs Temp 97.3 F 04/11/23 16:00 Pulse 68 04/11/23 16:00 Resp 18 04/11/23 16:00 BP 119/67 04/11/23 16:00 Pulse Ox 100 04/11/23 16:00 O2 Del Method Room Air 04/11/23 16:00 O2 Flow Rate 97 04/09/23 06:07 BMI result Body Mass Index 21.0 Const: Other: Constitutional: Alert, in no distress, frail looking, dysarthria (baseline) Mental Status: Oriented to person, place and time. Eyes: legally blind Respiratory: Clear to auscultation. No wheezing, rales or rhonchi. Cardiovascular: S1 S2 regular. No murmurs, rubs or gallops. Gastrointestinal: Abdomen soft, non-tender, non-distended. Normal bowel sounds.? Neurologic: Cranial nerves II-XII grossly intact. No focal neurological deficits. Moves all extremities spontaneously.?known ataxia Skin: No rashes or lesions.? Psychiatric: Normal mood and affect? Objective Data Active Medications Acetaminophen (Acetaminophen 325 Mg Tablet) 650 mg PO Q6H PRN PRN Reason: Pain, Mild (Pain Scale 1-3) Last Admin: 04/09/23 02:20 Dose: 650 mg Documented By: DAWIT Desmopressin Acetate (Desmopressin Acetate Nasal 10 Mcg/0.1 Ml [place].Pump) 1 spray NOSTRIL-L BID [facility] Last Admin: 04/11/23 09:28 Dose: 1 spray Documented By: MELLY Docusate Sodium (Docusate Sodium 100 Mg Capsule) 100 mg PO DAILY PRN PRN Reason: Constipation Enoxaparin Sodium (Enoxaparin Sodium 40 Mg/0.4 Ml Syringe) 40 mg SUBCUT Q24H [facility] Last Admin: 04/11/23 09:26 Dose: 40 mg Documented By: MELLY Hydrocortisone (Hydrocortisone 10 Mg Tablet) 10 mg PO DAILY [facility] Last Admin: 04/11/23 09:27 Dose: 10 mg Documented By: MELLY Ceftriaxone Sodium 1 gm/ (Sodium Chloride) 50 mls @ 100 mls/hr IV Q24H [facility] Last Infusion: 04/10/23 21:14 Dose: Infused Documented By: CATHI Levothyroxine Sodium (Levothyroxine Sodium 125 Mcg Tablet) 125 mcg PO [id number] [facility] Last Admin: 04/11/23 06:01 Dose: 125 mcg Documented By: CATHI Magnesium Hydroxide (Milk Of Magnesia 30 Ml Oral.Susp) 30 ml PO DAILY PRN PRN Reason: Constipation Melatonin (Melatonin 3 Mg Tablet) 6 mg PO BEDTIME PRN PRN Reason: Insomnia Methenamine Hippurate (Methenamine Hippurate 1 Gm Tablet) 1 gm PO BID [facility] Last Admin: 04/11/23 09:27 Dose: 1 gm Documented By: MELLY Pt Own ( Hydrocortisone 5 Mg Tablet) 7.5 mg PO BEDTIME [facility] Last Admin: 04/10/23 20:11 Dose: 7.5 mg Documented By: CATHI Pt Own (Testosterone 20.25 Mg/1.25 Gram (1.62 %) Gel In Metered-Dose Pum 1 pump TOPICAL DAILY [facility] Last Admin: 04/11/23 13:33 Dose: Not Given Documented By: MELLY Non-Admin Reason: Med Not Available Ondansetron HCl (Ondansetron Hcl 4 Mg/2 Ml Vial) 4 mg IVPUSH Q8H PRN PRN Reason: Nausea and Vomiting Sodium Bicarbonate (Sodium Bicarbonate 650 Mg Tablet) 650 mg PO BID [facility] Last Admin: 04/11/23 09:28 Dose: 650 mg Documented By: MELLY Sodium Chloride (0.9 % Sodium Chloride Flush 3 Ml Syringe) 3 ml IVFLUSH QSHIFT [facility] Last Admin: 04/11/23 16:31 Dose: 3 ml Documented By: MELLY Tamsulosin HCl (Tamsulosin Hcl 0.4 Mg Capsule) 0.8 mg PO DAILY [facility] Last Admin: 04/11/23 09:27 Dose: 0.8 mg Documented By: MELLY Labs 04/11/23 06:12 04/11/23 13:25 Labs: Laboratory Results - last 24 hr 04/11/23 04/11/23 04/11/23 06:12 13:25 13:36 MCV 77.4 L MCH 23.6 L MCHC 30.4 L RDW 18.7 H Plt Count 383 MPV 10.1 Absolute Nucleated RBC 0.000 Nucleated RBC % (auto) 0.0 VBG pH 7.44 H VBG pCO2 24 VBG pO2 84 VBG HCO3 16 L VBG O2 Saturation 98.0 VBG Base Excess -5.8 Anion Gap 15 15 Estim Creat Clear Calc 81.3 73.0 Estimated GFR > 60 > 60 Random Glucose 69 85 Calcium 7.5 L 8.0 L D Microbiology Microbiology Results: Microbiology 04/08/23 21:57 Blood Culture - Preliminary Blood - Venous No growth after 48 hours. 04/08/23 21:44 Blood Culture - Preliminary Blood - Venous No growth after 48 hours. Assessment and Plan (1) Acute hypokalemia: Status: Acute (2) Acute hypernatremia: Status: Acute (3) Acute UTI: Status: Acute (4) Urine retention: Status: Acute Plan 58-year-old male with a past medical history of for Erdheim-Marlon disease, panhypopituitarism, dysarthria, hydrocephalus status post MACHINE CLERICAL VERIFIER shunt, nephrolithiasis, recurrent UTIs,history of urinary retention s/p stent here with UTI, sepsis, hypotension, mild RYLAN, and mild hypernatremia. Severe sepsis 2/2 UTI, Negative LA follow cultures responded well to IVF continue Ceftriaxone Hypotension 2/2 sepsis, dehydration and autonomic insuficiency, and adrenal insuficiency continue IVF on home dose hydrocortisone monitor BP Mild Hypernatremia Na 144 IVF and repeat BMP RYLAN 2/2 sepsis and dehydration Improving IVF follow BMP Urine retention on admission Abdul removed, voiding trial bladder scan qshift mild hypokalemia give replacement and follow BMP Resume rest of home meds DVT prophylaxis: Levenox Full code Admit for overnight for sepsis, UTI, RYLAN pending clinical improvement Time Spent With Patient Time: Total time managing care of this patient today ____ minutes. Quality Stroke Does the patient have a stroke diagnosis?: No VTE Prior VTE?: No VTE Risk Level:: Medical - moderate - high VTE Device Contraindication: Treatment Not Indicated VTE Drug Contraindication: N/A - Med Ordered
[2023-04-11 20:00] VITALS: BP 138/79; PULSE 74; RESP 20; TEMP 36.2; O2SAT 98
[2023-04-12] VITALS: BP 144/76; PULSE 73; RESP 18; TEMP 37.1; O2SAT 99
[2023-04-12 03:14] VITALS: BP 119/65; PULSE 69; RESP 18; TEMP 36.2; O2SAT 98
[2023-04-12 08:00] VITALS: BP 118/66; PULSE 84; RESP 17; TEMP 36.1; O2SAT 99
--- NOTE | 2023-04-12 10:15 | MHC.CLN ---
NUTRITION CONSULT FOR REDNESS TO BILATERAL BUTTOCKS. NO OPEN AREAS. INTAKE APPEARS POOR WITH AVERAGE OF 25%. ADDING MAGIC CUP SUPPLEMENT BID TO PROMOTE NUTRITIONAL INTAKE. SUPPLEMENT PROVIDES 580 KCALS, 18 G PROTEIN. MONITOR INTAKE WEEKLY.
--- NOTE | 2023-04-12 10:17 | MHC.CM.PN ---
DP: PT HAS BEEN MEDICALLY CLEARED FOR DC HOME, NO SERVICES. WILL TRANSPORT.
[2023-04-12 11:48] VITALS: BP 124/72; PULSE 73; RESP 17; TEMP 36.1; O2SAT 99
--- NOTE | 2023-04-12 17:56 | PC.NURSE ---
Pt's own meds were brought to pharmacy to discard per pt's .
== END 2023-04-12 12:05 | disposition home or self-care (01) | DRG 871 ==
LOC: HO.ED 21:26 → HO.EDOVER 23:37 → HO.S3 04-09 22:53
PROVIDERS: Admitting Provider Internal Medicine; Emergency Provider Emergency Medicine; PCP Family Medicine; Visit Provider Student in an Organized Health Care Education/Training Program
DX: A41.9 Sepsis, unspecified organism (principal); N17.0 Acute kidney failure with tubular necrosis; R65.21 Severe sepsis with septic shock; N39.0 Urinary tract infection, site not specified; E87.0 Hyperosmolality and hypernatremia; G91.9 Hydrocephalus, unspecified; E27.40 Unspecified adrenocortical insufficiency; E88.89 Other specified metabolic disorders; E86.0 Dehydration; E87.6 Hypokalemia; D64.9 Anemia, unspecified; G90.9 Disorder of the autonomic nervous system, unspecified; E03.9 Hypothyroidism, unspecified; Z98.2 Presence of cerebrospinal fluid drainage device; Z79.52 Long term (current) use of systemic steroids; Z79.890 Hormone replacement therapy; Z79.899 Other long term (current) drug therapy
CPT/HCPCS: 36415; 71045; 80048; 80053; 80076; 81001; 81003; 82803; 83540; 83605; 83735; 84484; 85007; 85025; 85027; 87040; 87086; 87324; 87493; 87507; 92950; 93005; 99285; C1758; J0692; J0696; J1650; J1756; J3475

== ENCOUNTER → 2023-04-08 23:33 | Outpatient (BNV) | payer MEDICARE, MEDICAID, SELFPAY | PROVIDERS: Admitting Provider Internal Medicine; Emergency Provider Emergency Medicine; PCP Family Medicine; Visit Provider Student in an Organized Health Care Education/Training Program | DX: A41.9 Sepsis, unspecified organism (principal); R65.21 Severe sepsis with septic shock; E87.6 Hypokalemia; N39.0 Urinary tract infection, site not specified | CPT/HCPCS: 99223; 99232; 99233; 99239 ==

== ENCOUNTER 2023-04-13 11:08 | Inpatient (IN) | payer MEDICARE, MEDICAID, SELFPAY ==
--- NOTE | 2023-04-13 11:13 | ED_ITS ---
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, followed by [facility] in [place],?on a clinical trial medication?-?Cobimetinib) with sequelae of?panhypopituitarism, hypothyroidism, hypogonadism, diabetes insipidus, cerebellar ataxia, optic neuropathy (legally blind), ?dysarthria, ?autonomic dysfunction, hydrocephalus s/p?left cerebellar mass resection (07/2011, at [facility]) and s/p REGIONAL ACCOUNT EXECUTIVE shunt placement (08/2013, at [facility]), hypertension,?chronic constipation, osteoporosis with numerous compression?fractures, kidney stones s/p cystoscopy & left ureteral stent (06/2022, Dr. Simms), cystoscopy & right ureteral stent x 2 (12/2022, Dr. Obrien; 01/2023, Dr. Cramer), BPH, urinary retention, depression, anxiety, recent admission to [facility] for septic shock 2/2 UTI who was just discharged 04/11 on ceftin who presents back to the ER via EMS for evaluation of not acting himself, pre-syncope and weakness today while having diarrhea. Of note urine culture from 04/08 had no growth. Caregiver today reported patient was on the toilet having diarrhea when he seemed more weak and he felt like he was going to pass out. They got him back into a chair and his BP machine at home read 60/40s. EMS was called. BP for EMS was 80/60s. IV established and IVF started with improvement in BP to 100/60s. Patient reports having ongoing burning with initiation of urinary stream, incomplete bladder emptying and bladder pressure. He has had 3 episodes of nonbloody diarrhea since yesterday. No associated abdominal pain, chest pain or SOB. No nausea, vomiting or fevers. He has dysphagia and reports his PO intake has been poor since going back home. MD complaint: urinary symptoms, weakness, diarrhea Onset (ago): day(s) (1) Location: genitals Radiation: non-radiation Severity: moderate Quality: burning Pain Consistency: intermittent Relieving factors: none Exacerbating factors: other (urination) Associated symptoms: loss of appetite, malaise, weakness and other (diarrhea) Treatments prior to arrival: other (IVF) Related Data Home Medications Medication Instructions Recorded Confirmed desmopressin 10 mcg/spray (0.1 mL) 1 spray intranasal BID 04/08/23 04/08/23 nasal spray (non-refrigerated) hydrocortisone 10 mg tablet 10 mg PO BID 04/08/23 04/08/23 hydrocortisone 5 mg tablet 7.5 mg PO BEDTIME 04/08/23 04/09/23 levothyroxine 125 mcg tablet 125 mcg PO DAILY 04/08/23 04/09/23 methenamine hippurate 1 gram tablet 1 g PO BID 04/08/23 04/09/23 tamsulosin 0.4 mg capsule 0.8 mg PO DAILY 04/08/23 04/09/23 testosterone 1 pump topical QAM 04/08/23 04/09/23 Previous Rx's Medication Instructions Recorded cefuroxime axetil 500 mg tablet 500 mg PO BID #10 tabs 04/11/23 ferrous sulfate 324 mg (65 mg 324 mg PO DAILY #30 tabs 04/11/23 iron) tablet,delayed release sodium bicarbonate 650 mg tablet 650 mg PO BID #20 tabs 04/11/23 Allergies Allergy/AdvReac Type Severity Reaction Status Date / Time No Known Allergies Allergy Verified 09/07/21 17:49 Review of Systems 2 Review of Systems: Yes all other systems are reviewed and are negative [facility] Past Medical History Medical History HTN (hypertension) Encephalopathy Hyponatremia Hydrocephalus Optic neuropathy of both eyes Diplopia Alternating esotropia Anemia Iron malabsorption Osteopenia Hypothyroidism Diabetes Hypogonadism in male Pituitary insufficiency Erdheim-Falls Creek disease Social History Social History Household Members: Spouse Housing: House Do you presently have visiting nurse or other home services: Yes Alcohol intake: never Patient Tobacco Use Status: Never used Tobacco Advance Directives: No service: No Physical Exam ED Vital Signs: Vital Signs - 24 hr 10/12/23 11:49 04/13/23 13:43 04/13/23 15:25 Temperature 97.7 F Pulse Rate 106 H 106 H 117 H Respiratory Rate 18 18 18 Blood Pressure 103/64 121/68 111/76 Pulse Oximetry 99 100 98 Oxygen Delivery Method Room Air Room Air Room Air BMI result Body Mass Index 22.8 Appearance: Alert, appears older than stated age. Head: normocephalic, atraumatic. Eyes: Pupils equal, round and reactive to light. twitching of left eye ENT: Pharynx normal. No tonsillar swelling or exudate. Neck: Normal inspection. Neck supple. CVS: Normal heart rate and rhythm. Pulses normal. Respiratory: No respiratory distress. Breath sounds normal. Abdomen: Soft and nontender. +BS x4. normal inspection Skin: Skin warm and dry. Normal skin color. Normal skin turgor. No rashes. Extremities: No lower extremity edema. No joint swelling. Neuro/psych: Oriented X 3, difficult speech to understand. Course Reevaluation(s) Reevaluation #1: BP remains stable here. found to have significant hypokalemia w/ K 2.6. PO and IV replacement have been ordered. he has had diarrhea, concern for ongoing losses. D51/2 w/ 40mEQKCL @ 125cc/hr ordered. stool studies pending. UA ++ for infection. covered with cefepime for possible pseudomonas coverage given representation. ekg w/ new t-wave inversions and slight ST depressions in V3-V6. no pain. trop pending. Time: 15:53 Medications Administered Generic Name Dose Route Start Last Admin Trade Name Freq PRN Reason Stop Dose Admin Potassium Chloride/Dextrose/Sod Cl 40 meq in 1,000 mls @ 125 mls/hr 04/13/23 14:15 04/13/23 15:20 Kcl 40 Meq In 5% Dex/0.45% Sod IVCONT 125 mls/hr .Q8H YARY Administration Discontinued Medications Generic Name Dose Route Start Last Admin Trade Name Freq PRN Reason Stop Dose Admin Sodium Chloride 1,000 mls @ 999 mls/hr 04/13/23 11:45 04/13/23 15:18 Ns IVCONT 04/13/23 12:45 Infused .Q1H1M YARY Infusion Cefepime HCl 2 gm/ Sodium 50 mls @ 100 mls/hr 04/13/23 14:11 04/13/23 15:19 Chloride IV 04/13/23 14:40 Infused ONCE ONE Infusion Potassium Chloride 40 meq 04/13/23 14:10 04/13/23 14:29 Potassium Chloride Packet 20 Meq Packet PO 04/13/23 14:11 40 meq ONCE ONE Administration Procedures EJ/Peripheral Line Arm R: Time Out Performed: Yes Skin Cleansed in Sterile Fashion: Yes Size (gauge): 20 IV Secured and Dressing Applied: Yes Patient Tolerated Procedure: well and no complications Additional Comments: used with US guidance Medical Decision Making Medical Decision Making [facility] Narrative: 58 y.o.?male?with a history of?Erdheim-Marlon disease with multiple complications of such with recent admission for septic shock 2/2 UTI, recently discharged on 04/11 who presents back to the ER with weakness, diarrhea, pre- syncopal episode this morning associated w/ hypotension 60/40s. BP improved on arrival. ??vasovagal episode while on the toilet, possible autonomic dysfunction, verses possible recurrent sepsis. BP on arrival 103/64 w/ HR 106. afebrile. Difficult stick so labs delayed. US guided line placed by myself. labs w/ persistent leukocytosis. UA ++ for infection, although prior UA was positive and culture ended up with no growth. His lactic acid today is normal. No RYLAN but hypokalemic w/ low albumin and protein. likely due to poor PO intake and failure to thrive at home. He has dysphagia and has minimal PO intake. No evidence of severe sepsis or septic shock at this time. EKG w/ new t-wave inversions and 1mm ST depressions in V3-V6 that were not present on 04/08. Troponin pending. No chest pain, sob, nausea or diaphoresis. Troponin negative. Will plan for admission for further management. Differential Diagnosis Differential Diagnoses: The differential diagnosis associated with the presentation includes sepsis, UTI, intra-abdominal infection, Cdiff, dehydration, electrolyte abnormality, failure to thrive, vasovagal episode, autonomic dysfunction, NSTEMI 2/2 demand Admission/Observation Consideration of admission/observation: Escalation of care including admission/observation considered Consult Healthcare Provider Management of the patient was discussed with: Hospitalist Lab Data [facility] Lab Attestation statement: I reviewed the patient's lab results. leukocytosis, chronic anemia, hypokalemia, 04/13/23 13:38 04/13/23 13:38 Labs: Lab Results 04/13/23 04/13/23 Range/Units 13:38 13:45 WBC 13.1 H (4.8-10.8) X10*3/uL RBC 4.64 (4.60-5.80) X10*6/uL Hgb 11.1 L (14.0-18.0) g/dl Hct 35.9 L (42.0-52.0) % MCV 77.4 L (80.0-98.0) fL MCH 23.9 L (27.0-33.0) pg MCHC 30.9 L (31.0-36.0) g/dl RDW 19.3 H (11.0-16.0) % Plt Count 394 (160-400) X10*3/uL MPV 9.5 (9.4-12.4) fL Immature Gran % (Auto) 4.4 H (0.0-0.4) % Neut % (Auto) 68.3 (45-73) % Lymph % (Auto) 12.6 L (20-40) % [place] % (Auto) 12.0 H (2-11) % Eos % (Auto) 1.9 (0-4) % Baso % (Auto) 0.8 (0-2) % Lymph # (Auto) 1.7 (1.2-4.9) X10*3/uL [place] # (Auto) 1.6 H (0.1-1.2) X10*3/uL Eos # (Auto) 0.3 (0.0-0.4) X10*3/uL Baso # (Auto) 0.1 (0.0-0.2) X10*3/uL Abs Immat Gran (auto) 0.58 H (0.00-0.03) X10*3/uL Absolute Neuts (auto) 8.9 H (2.0-8.3) x10*3/uL Absolute Nucleated RBC 0.000 (0.0-0.012) X10*3/uL Nucleated RBC % (auto) 0.0 (0.0-0.2) /100WBC Smear Tech's Comments VERIFIED Sodium 146 H (135-145) mmol/L Potassium 2.6 L D (3.3-5.1) mmol/L Chloride 115 H (96-108) mmol/L Carbon Dioxide 19 L (22-29) mmol/L Anion Gap 15 (12-20) BUN 12 (9-16) mg/dL Creatinine 1.18 (0.5-1.4) mg/dL Estim Creat Clear Calc 65.9 Estimated GFR > 60 Random Glucose 71 (60-115) mg/dL Lactic Acid 1.3 (0.5-2.0) mmol/L Calcium 8.1 L (8.4-10.2) mg/dL Magnesium 1.5 L (1.6-2.6) mg/dL Total Bilirubin 0.5 (0.0-1.0) mg/dL Direct Bilirubin 0.2 (0.0-0.5) mg/dL AST 6 (5-37) U/L ALT 6 (0-40) U/L Alkaline Phosphatase 86 (39-117) U/L Troponin I High Sens < 2.7 (<3.5-35.0) ng/L Total Protein 6.0 L (6.5-8.0) g/dL Albumin 2.8 L (3.5-5.0) g/dL Urine Color Yellow Urine Appearance Clear Urine pH 6.0 (5.0-9.0) Ur Specific [place] 1.010 (1.005-1.025) Urine Protein 30 (1+) H (Neg-Trace) mg/dL Urine Glucose (UA) Negative (Negative) mg/dL Urine Ketones Trace (Negative) mg/dL Urine Blood Trace H (Negative) Urine Nitrite Negative (Negative) Ur Leukocyte Esterase Moderate (2+) H (Negative) Urine RBC 6-10 H (0-2) /HPF Urine WBC >50 H (0-5) /HPF Ur Squamous Epith Cells 0-2 (0-2) /HPF Urine Bacteria None Seen (None Seen) Hyaline Casts 0-2 (0-2) /LPF Urine Yeast Present Independent Interpretation I performed an independent interpretation of an: EKG Interpretation: ekg with sinus tachycardia, HR 103 bpm, low voltage QRS, normal DE interval, normal QTC, new t-wave inversions and ST depressions in V3-V6 that were not present last week Independent Historian Clinical information obtained from an independent historian. History obtained from or confirmed by: Spouse and EMS External Record Review External record reviewed: Inpatient record, Outpatient record and Prior outpatient labs Tests considered The following testing was considered but not selected: CT scan abd considered to look for another source of sepsis but his abd exam is benign Prescription Management I considered prescription management with: Antibiotic Chronic Conditions Patient?s care impacted by: Other (autonomic dysfunction) Critical Care Time Critical Care Time Critical Care Time: Yes Total Critical Care Time: 44 Attestation: I have personally provided critical care time exclusive of time spent on separately billable procedures. Time includes review of lab data, radiology results, discussion with consultants, and monitoring for potential decompensation. Intervention performed as documented. Discharge Plan Discharge Clinical Impression: Acute hypokalemia, Acute UTI, Abnormal EKG Patient Disposition: Admitted As Inpatient Prescriptions: No Action hydrocortisone 5 mg tablet 7.5 mg PO BEDTIME desmopressin 10 mcg/spray (0.1 mL) spray with pump 1 spray intranasal BID methenamine hippurate 1 gram tablet 1 g PO BID tamsulosin 0.4 mg capsule 0.8 mg PO DAILY levothyroxine 125 mcg tablet 125 mcg PO DAILY hydrocortisone 10 mg tablet 10 mg PO BID testosterone 20.25 mg/1.25 gram (1.62 %) gel in metered-dose pump 1 pump topical QAM sodium bicarbonate 650 mg Tablet 650 mg PO BID Qty: 20 0RF ferrous sulfate 324 mg (65 mg iron) tablet,delayed release (DR/EC) 324 mg PO DAILY Qty: 30 0RF cefuroxime axetil 500 mg tablet 500 mg PO BID Qty: 10 0RF
[2023-04-13 11:49] VITALS: BP 103/64; BP 95/68; PULSE 106; PULSE 110; RESP 18; TEMP 36.5; O2SAT 99; BMI 22.8
--- NOTE | 2023-04-13 11:55 | ECG_ITS ---
Test Reason : WEAKNESS Blood Pressure : / mmHG Vent. Rate : 103 BPM Atrial Rate : 103 BPM P-R Int : 162 ms QRS Dur : 084 ms QT Int : 352 ms P-R-T Axes : 020 -07 042 degrees QTc Int : 461 ms Sinus tachycardia Low voltage QRS ST & T wave abnormality, consider anterolateral ischemia Abnormal ECG When compared with ECG of 08-APR-2023 19:07, ST now depressed in Anterolateral leads Referred By: Kerry Carroll Electronically Signed By:JONNY QUIROS MD
--- NOTE | 2023-04-13 12:04 | MHC.EDTECH ---
This pct attempted to draw labs attempted twice both times unsuccessful. RN Aware
[2023-04-13] MEDS: 0.9 % Sodium Chloride 1,000 ML 999 ML IVCONT (13:37)
[2023-04-13 13:43] VITALS: BP 121/68; PULSE 106; RESP 18; O2SAT 100
[2023-04-13 13:46] LABS: Basophils Absolute Auto 0.1 X10*3/uL (0.0-0.2); Basophils Percent Auto 0.8 % (0-2); Eosinophils Absolute Auto 0.3 X10*3/uL (0.0-0.4); Eosinophils Percent Auto 1.9 % (0-4); Hematocrit 35.9 % (42.0-52.0); Hemoglobin 11.1 g/dl (14.0-18.0); Imm Gran Abs Auto 0.58 X10*3/uL (0.00-0.03); Imm Gran Pct Auto 4.4 % (0.0-0.4); Lymphocytes Absolute Auto 1.7 X10*3/uL (1.2-4.9); Lymphocytes Percent Auto 12.6 % (20-40); MANUAL DIFF FLAG SCAN; Mean Corpuscular HGB Conc 30.9 g/dl (31.0-36.0); Mean Corpuscular Hemoglobin 23.9 pg (27.0-33.0); Mean Corpuscular Volume 77.4 fL (80.0-98.0); Mean Platelet Volume 9.5 fL (9.4-12.4); Monocytes Absolute Auto 1.6 X10*3/uL (0.1-1.2); Neutrophils Absolute Auto 8.9 x10*3/uL (2.0-8.3); Neutrophils Percent Auto 68.3 % (45-73); Platelet Count 394 X10*3/uL (160-400); Red Blood Count 4.64 X10*6/uL (4.60-5.80); Red Cell Distribution Width 19.3 % (11.0-16.0); SCAN SMEAR FLAG 1; White Blood Count 13.1 X10*3/uL (4.8-10.8)
[2023-04-13 13:53] LABS: Appearance Urine Clear; Color Urine Yellow; Glucose Urine UA Negative (Negative); Leukocyte Esterase Urine Moderate (2+) (Negative); Nitrite Urine Negative (Negative); UMIC TRIGGER UACC YES; Urine Blood Trace (Negative); Urine Ketones Trace mg/dL (Negative); Urine Protein 30 (1+) mg/dL (Neg-Trace)
[2023-04-13 13:57] LABS: Lactic Acid 1.3 mmol/L (0.5-2.0)
[2023-04-13 14:01] LABS: Bacteria Urine None Seen (None Seen); Hyaline Casts Urine 0-2 /LPF (0-2); Squamous Epithelial Cell Urine 0-2 /HPF (0-2); UACC Culture Trigger YES; WBC Urine >50 /HPF (0-5)
[2023-04-13 14:02] LABS: Alanine Aminotransferase 6 U/L (0-40); Albumin Level 2.8 g/dL (3.5-5.0); Alkaline Phosphatase 86 U/L (39-117); Anion Gap 15 (12-20); Aspartate Amino Transferase 6 U/L (5-37); Bilirubin Direct 0.2 mg/dL (0.0-0.5); Bilirubin Total 0.5 mg/dL (0.0-1.0); Blood Urea Nitrogen 12 mg/dL (9-16); Calcium 8.1 mg/dL (8.4-10.2); Carbon Dioxide 19 mmol/L (22-29); Chloride 115 mmol/L (96-108); Creatinine Clr Calc Pharmacy 65.9; Estimated Glomerular Filt Rate > 60; Glucose Random 71 mg/dL (60-115); Magnesium 1.5 mg/dL (1.6-2.6); Potassium 2.6 mmol/L (3.3-5.1); Sodium 146 mmol/L (135-145)
[2023-04-13 14:11] LABS: SLIDE REVIEW VERIFIED
[2023-04-13] MEDS: Potassium Chloride Packet 20 MEQ PACKET 40 MEQ PO (14:29)
[2023-04-13] MEDS: cefEPime HCl 2 GM in 0.9 % Sodium Chloride 50 ML IV (14:36)
[2023-04-13] MEDS: KCl 40 mEq in 5% Dex/0.45% Sod 40 MEQ/1,000 ML IV.SOLN 125 MEQ IVCONT (15:20)
--- NOTE | 2023-04-13 15:21 | PC.NURSE ---
pt difficult stick - IV inserted by provider with US. labs and blood cultures drawn. urine sent. per PA, DC fluids (300ml infused) in favor of K+ with D5 and 0.45% NS. Pt has delayed swallow. PO K+ thickened and taken by pt with spoon.
[2023-04-13 15:25] VITALS: BP 111/76; PULSE 117; RESP 18; O2SAT 98
[2023-04-13 16:07] LABS: Troponin-I High Sensitivity < 2.7 ng/L (<3.5-35.0)
[2023-04-13 16:50] VITALS: BP 122/75; PULSE 105; RESP 16; TEMP 37.6; O2SAT 98
--- NOTE | 2023-04-13 16:53 | PHA.MEDREC ---
Pharmacy Consult ? Medication Reconciliation Pharmacy has completed the medication reconciliation. Patient just discharged 04/12, utilized discharge summary. Amanda Altamirano, AlexisD
[2023-04-13 19:09] VITALS: BP 126/72; PULSE 95; RESP 20; TEMP 36.3; O2SAT 97
--- NOTE | 2023-04-13 19:12 | MHC.EDTECH ---
PATIENT WAS INCONTINENT OF URINE ,CARE GIVEN AND [place] CATHETHER PLACE ,PT RESTING COMFORTABLE IN BED ,WILL CONTINUE TO MONITOR .
--- NOTE | 2023-04-13 19:50 | PC.NURSE ---
pt iv has been positional throughout day and K+ infusion depends on pt ability to keep arm straight. IV inserted by PA with ultrasound guidance- pt is very difficult IV insertion and blood draw. IV has been repositioned several times to get K+ to infuse appropriately.
--- NOTE | 2023-04-13 19:57 | PM.IMHP ---
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 Simms), cystoscopy & right ureteral stent x 2 (12/2022, Dr. Obrien; 01/2023, Dr. Cramer), BPH, urinary retention, depression, and anxiety who presents to the ED for evaluation of presyncopal episode, altered mental status, and weakness earlier in the day. Pt is minimally verbal at baseline. Majority of HPI taken from chart, provider, and family review. Patient was recently admitted to the hospital on 04/08-04/11 and treated for septic shock secondary to UTI, discharged on Ceftin. states patient initially did very well upon discharge, but when she went to see him this morning she found him so soiled with diarrhea, not making sense, weak, and disoriented. She brought him into the bathroom where he then had a presyncopal episode on the toilet. Blood pressure was noted to be 68/37. They called EMS who found his BP in 80s/60s, improved to 100s/60s after IVF. In the ED BP as low as 103/64. notes patient has not been eating or drinking much since discharge, which has been an ongoing problem for quite some time. Had two other episodes of loose stool yesterday, and has been experiencing some pain with urination. Not complaining of any nausea, vomiting, abdominal pain. No chest pain/pressure, palpitations. In the ED patient was afebrile but tachycardic up to 117, normotensive, in satting at 98% on RA. Labs were significant for leukocytosis of 13.1, stable H&H of 11.1/35.9, sodium 146, potassium 2.6, magnesium 1.5, protein 6.0, albumin 2.8. Renal and hepatic functions WNL. Troponin negative. UA positive for UTI. EKG demonstrated sinus tachycardia of [address] depressions in V3-V6, slightly worse than previous. Pt was treated with IVF, potassium chloride, and cefepime. Pt will be admitted to the hospital for treatment further evaluation of acute metabolic encephalopathy in the setting of UTI. Review of Systems Review of Systems: Presyncopal episode Weakness Hypotension Altered mental status Diarrhea Poor p.o. intake [facility] Medical History HTN (hypertension) Encephalopathy Hyponatremia Hydrocephalus Optic neuropathy of both eyes Diplopia Alternating esotropia Anemia Iron malabsorption Osteopenia Hypothyroidism Diabetes Hypogonadism in male Pituitary insufficiency Erdheim-Burkesville disease Social History Household Members: Spouse Housing: House Do you presently have visiting nurse or other home services: Yes Alcohol intake: never Patient Tobacco Use Status: Never used Tobacco service: No Meds Allergies Allergy/AdvReac Type Severity Reaction Status Date / Time No Known Allergies Allergy Verified 09/07/21 17:49 Active Medications: Current Medications Acetaminophen (Acetaminophen 325 Mg Tablet) 650 mg PO Q6H PRN PRN Reason: Pain, Mild (Pain Scale 1-3) Acetaminophen (Acetaminophen Supp 650 Mg Supp.Rect) 650 mg NC Q6H PRN PRN Reason: Pain, Mild (Pain Scale 1-3) Enoxaparin Sodium (Enoxaparin Sodium 40 Mg/0.4 Ml Syringe) 40 mg SUBCUT Q24H YARY Ferrous Sulfate (Ferrous Sulfate 324 Mg Tablet.Dr) 324 mg PO DAILY YARY Hydrocortisone (Hydrocortisone 10 Mg Tablet) 10 mg PO BID YARY Potassium Chloride/Dextrose/Sod Cl (Kcl 40 Meq In 5% Dex/0.45% Sod) 40 meq in 1,000 mls @ 125 mls/hr IVCONT .Q8H [facility] Last Admin: 04/13/23 15:20 Dose: 125 mls/hr Melatonin (Melatonin 3 Mg Tablet) 6 mg PO BEDTIME PRN PRN Reason: Insomnia Non-Formulary Medication (Desmopressin) 1 spray NOSTRIL-B BID [facility] Non-Formulary Medication (Hydrocortisone) 7.5 mg PO BEDTIME [facility] Ondansetron HCl (Ondansetron Hcl 4 Mg/2 Ml Vial) 4 mg IVPUSH Q8H PRN PRN Reason: Nausea and Vomiting Sodium Chloride (0.9 % Sodium Chloride Flush 3 Ml Syringe) 3 ml IVFLUSH QSHIFT [facility] Home Medications Medication Instructions Recorded Confirmed Last Taken Type desmopressin 10 mcg/spray (0.1 mL) 1 spray intranasal BID 04/08/23 04/13/23 Unknown History nasal spray (non-refrigerated) hydrocortisone 10 mg tablet 10 mg PO DAILY 04/08/23 04/13/23 Unknown History hydrocortisone 5 mg tablet 7.5 mg PO BEDTIME 04/08/23 04/13/23 Unknown History levothyroxine 125 mcg tablet 125 mcg PO DAILY 04/08/23 04/13/23 Unknown History methenamine hippurate 1 gram tablet 1 g PO BID 04/08/23 04/13/23 Unknown History tamsulosin 0.4 mg capsule 0.8 mg PO DAILY 04/08/23 04/13/23 Unknown History testosterone 1 pump topical QAM 04/08/23 04/13/23 Unknown History Physical Exam Vital Signs and Narrative: Vital Signs: Last Vital Signs Temp 97.4 F 04/13/23 19:09 Pulse 95 04/13/23 19:09 Resp 20 04/13/23 19:09 BP 126/72 04/13/23 19:09 Pulse Ox 97 04/13/23 19:09 O2 Del Method Room Air 04/13/23 19:09 BMI result Body Mass Index 22.8 Constitutional: Alert, in no acute distress. Pt with noted dysarthria, seems at baseline Mental Status: Oriented to person, place and time. Eyes: Pt legally blind. Ear, Nose, and Throat: Oropharynx clear, mucous membranes moist. Ears and nose without deformities. Trachea midline. Respiratory: Clear to auscultation bilaterally. No wheezing, rales, or rhonchi. Cardiovascular: S1, S2 regular. No murmurs, rubs, or gallops. Gastrointestinal: Abdomen soft, non-tender, non-distended. Normal bowel sounds. Neurologic: Cranial nerves II-XII are grossly intact bilaterally. No focal neurological deficits. Moves all extremities spontaneously. Pt with noted ataxia, seemingly at baseline. Skin: No rashes or lesions noted. Musculoskeletal: No cyanosis or clubbing. Extremities: No edema. Psychiatric: Normal mood and affect. Results Labs 04/13/23 13:38 04/13/23 13:38 Labs: Laboratory Results - last 24 hr 04/13/23 04/13/23 13:38 13:45 MCV 77.4 L MCH 23.9 L MCHC 30.9 L RDW 19.3 H Plt Count 394 MPV 9.5 Immature Gran % (Auto) 4.4 H Neut % (Auto) 68.3 Lymph % (Auto) 12.6 L [place] % (Auto) 12.0 H Eos % (Auto) 1.9 Baso % (Auto) 0.8 Lymph # (Auto) 1.7 [place] # (Auto) 1.6 H Eos # (Auto) 0.3 Baso # (Auto) 0.1 Abs Immat Gran (auto) 0.58 H Absolute Neuts (auto) 8.9 H Absolute Nucleated RBC 0.000 Nucleated RBC % (auto) 0.0 Smear Tech's Comments VERIFIED Anion Gap 15 Estim Creat Clear Calc 65.9 Estimated GFR > 60 Random Glucose 71 Lactic Acid 1.3 Calcium 8.1 L Magnesium 1.5 L Total Bilirubin 0.5 Direct Bilirubin 0.2 AST 6 ALT 6 Alkaline Phosphatase 86 Total Protein 6.0 L Albumin 2.8 L Urine Color Yellow Urine Appearance Clear Urine pH 6.0 Ur Specific [place] 1.010 Urine Protein 30 (1+) H Urine Glucose (UA) Negative Urine Ketones Trace Urine Blood Trace H Urine Nitrite Negative Ur Leukocyte Esterase Moderate (2+) H Urine RBC 6-10 H Urine WBC >50 H Ur Squamous Epith Cells 0-2 Urine Bacteria None Seen Hyaline Casts 0-2 Urine Yeast Present Assessment and Plan (1) Acute hypokalemia: Status: Acute (2) Acute UTI: Status: Acute Plan Pt is a 58-year-old male with a complex PMH significant for?Erdheim-[place] disease, panhypopituitarism, hypothyroidism, hypogonadism, diabetes insipidus, cerebellar ataxia, optic neuropathy (legally blind), ?dysarthria, ?autonomic dysfunction, hydrocephalus, hypertension,?chronic constipation, osteoporosis, kidney stones, ureteral stents, BPH, urinary retention, depression, and anxiety who presents to the ED for evaluation of presyncopal episode, altered mental status, and weakness earlier in the day. Patient be admitted to the hospital for treatment further evaluation of sepsis in setting of UTI. UTI Patient with dysuria, positive UA Patient meets sepsis criteria: UTI, WBC, tachycardia; lactic acid WNL at 1.3 Patient given IVF and started on broad-spectrum antibiotics in ED IV abx: Cefepime 2g q12h, started 04/13/[address] Follow cultures Hypotension Reports BP as low as 68/37 at home, lowest here 103/64 Likely multifactorial: d/t dehydration secondary to reduced p.o. intake, sepsis, autonomic insufficiency, diarrhea Patient received IVF by EMS and in the ED, currently 126/[address] on maintenance fluids Monitor BP Acute metabolic encephalopathy Likely multifactorial: Sepsis, UTI, dehydration Patient now seemingly back to baseline Monitor mentation Mild Hypernatremia Sodium 146 Likely secondary to dehydration due to reduced p.o. intake, diarrhea Patient received IVF Follow BMP Hypokalemia Potassium 2.6 at time of presentation Likely secondary to dehydration due to reduced p.o. intake, diarrhea Patient received potassium chloride 40 mEq p.o. and potassium chloride IV in ED Follow BMP Hypomagnesia Magnesium 1.5 at time of presentation Will start on Mag-Ox 400 mg p.o. b.i.d. Follow Mag Diarrhea Patient with at least 3 episodes of loose stool since yesterday Unclear etiology: Possible abx use, gastroenteritis Check GI panel Hypothyroidism Continue levothyroxine BPH/hx of urinary retention Hold tamsulosin d/t soft BP Full Code Attending:?Dr. Ochoa DVT Prophylaxis: Lovenox Pt will require a hospitalization of at least two nights for treatment of?acute metabolic encephalopathy in the setting of sepsis due to UTI. Patient be treated with IV antibiotics, IV fluids, and close monitoring. Time Spent With Patient Time: Total time managing care of this patient today ____ minutes. Quality Stroke Does the patient have a stroke diagnosis?: No VTE Prior VTE?: No VTE Risk Level:: Medical - moderate - high VTE Device Contraindication: Treatment Not Indicated VTE Drug Contraindication: N/A - Med Ordered
[2023-04-13 20:00] VITALS: BP 150/62; PULSE 97; RESP 18; TEMP 37.1; O2SAT 99
--- NOTE | 2023-04-13 20:11 | PC.NURSE ---
attempted to reach nurse to give report 2011
--- NOTE | 2023-04-13 20:38 | HE.PHANOTE ---
Patient own testesterone was left in pyxis on patient's last discharge. Medication was re-labeled and will be loaded in the S3E pyxsis under the medication name Patluisno, Ayo Testosterone gel... RN will need to override and type Patluisno Ayo Testosterone gel... to get medication for administration.
[2023-04-13 21:14] VITALS: BMI 21.6
[2023-04-13] MEDS: Enoxaparin Sodium 40 MG/0.4 ML SYRINGE SUBCUT (21:45)
[2023-04-13] MEDS: Magnesium Sulfate/H2O 2 GM/50 ML PIGGYBACK IV (21:45)
[2023-04-13] MEDS: Sodium Bicarbonate 650 MG TABLET PO (21:45)
[2023-04-13] MEDS: 0.9 % Sodium Chloride Flush 3 ML SYRINGE IVFLUSH (21:49)
--- NOTE | 2023-04-13 22:34 | PC.NURSE ---
Addendum entered by Wanda Gallagher RN 04/14/23 03:06: 2250-lab called informing pt is confirmed + c diff. notified.0100 IV infiltrated. Pt is a hard stick. notified. Ordered to insert IV to pt's foot. IV access regained #22 to right foot. LR infusing. Potassium replacement infusing. Original Note: Came from ED via stretcher. Awake and oriented to person and place. slurred speech. Calm and cooperative. Incontinent with stool. Liquidy stool. Sample were sent to Labs for GI panel. left upper arm IV access 20G. Stage 1 to coccyx. foam dressing applied. Preliminary results positive for PCR for c diff . notified. Awaiting for antigen test results.
[2023-04-13 22:39] LABS: CDiff Gene PCR POSITIVE (Negative)
[2023-04-13 22:40] LABS: CDIFF Internal ctrl Dots and bkg OK (V)
[2023-04-13 22:52] LABS: CDiff Toxin Positive (Negative)
--- NOTE | 2023-04-13 23:00 | PM.EVENT ---
Event Note Date of Service: 04/13/23 Event Note: Was notified by nurse that patient tested positive for C diff toxin and gene. Initiating fidaxomicin. Consulting ID and will place on contact precautions Time Spent With Patient Time: Total time managing care of this patient today ____ minutes.
[2023-04-13] MEDS: Fidaxomicin 200 MG TABLET PO (23:48)
[2023-04-13] MEDS: Lactated Ringers 1,000 ML 100 ML IVCONT (23:48)
[2023-04-13] MEDS: Potassium Chloride/H20 10 MEQ/100 ML PIGGYBACK 100 MEQ IV (23:48)
[2023-04-14] MEDS: Potassium Chloride/H20 10 MEQ/100 ML PIGGYBACK 100 MEQ IV ×3 (00:58→04:07)
[2023-04-14] MEDS: cefEPime HCl 2 GM in 0.9 % Sodium Chloride 50 ML IV (02:56)
[2023-04-14 03:06] VITALS: BP 130/71; PULSE 109; RESP 16; TEMP 36; O2SAT 98
[2023-04-14] MEDS: Levothyroxine Sodium 125 MCG TABLET PO (05:29)
[2023-04-14 06:47] VITALS: BP 114/68; PULSE 97; RESP 18; TEMP 36.1; O2SAT 93
[2023-04-14] MEDS: Ferrous Sulfate 324 MG TABLET.DR PO (09:05)
[2023-04-14] MEDS: Tamsulosin HCL 0.4 MG CAPSULE 0.8 MG PO (09:05)
[2023-04-14] MEDS: Sodium Bicarbonate 650 MG TABLET PO ×2 (09:05→23:57)
[2023-04-14] MEDS: Hydrocortisone 10 MG TABLET PO (09:05)
[2023-04-14] MEDS: Acetaminophen 325 MG TABLET 650 MG PO (09:15)
[2023-04-14 09:52] LABS: Adenovirus F 40/41 Not Detected (Not Detect.); Astrovirus Not Detected (Not Detect.); Campylobacter Not Detected (Not Detect.); Cryptosporidium Not Detected (Not Detect.); Cyclospora cayetanensis Not Detected (Not Detect.); E. coli EAEC Not Detected (Not Detect.); E. coli EPEC Not Detected (Not Detect.); E. coli ETEC Not Detected (Not Detect.); E. coli STEC Not Detected (Not Detect.); Entamoeba histolytica Not Detected (Not Detect.); Giardia lamblia Not Detected (Not Detect.); Norovirus GI/GII Not Detected (Not Detect.); Plesiomonas shigelloides Not Detected (Not Detect.); Rotavirus A Not Detected (Not Detect.); Salmonella Not Detected (Not Detect.); Sapovirus Not Detected (Not Detect.); Shigella sp./EIEC Not Detected (Not Detect.); Vibrio Not Detected (Not Detect.); Vibrio Cholerae Not Detected (Not Detect.); Yersinia enterocolitica Not Detected (Not Detect.)
--- NOTE | 2023-04-14 10:04 | MHC.CLN ---
NUTRITION RECENTLY DISCHARGED FROM [facility] [place]. LIMITED PO DURING PRIOR ADMISSION. ADDING ENSURE MAX BID TO INCREASE NUTRITIONAL INTAKE. PROVIDES 300 KCALS, [address] TO FOLLOW UP WEEKLY.
--- NOTE | 2023-04-14 10:23 | P.PNIM_ITS ---
Subjective Subjective Date of Service: 04/14/23 Interval History: diarrhea, weak Physical Exam 2 Vital Signs: Vital Signs: Last Vital Signs Temp 97 F 04/14/23 06:47 Pulse 97 04/14/23 06:47 Resp 18 04/14/23 06:47 BP 114/68 04/14/23 06:47 Pulse Ox 93 04/14/23 06:47 O2 Del Method Room Air 04/14/23 06:47 BMI result Body Mass Index 21.6 lethargic, weak, ill appearing Objective Data Active Medications Acetaminophen (Acetaminophen 325 Mg Tablet) 650 mg PO Q6H PRN PRN Reason: Pain, Mild (Pain Scale 1-3) Last Admin: 04/14/23 09:15 Dose: 650 mg Documented By: CARLOS Acetaminophen (Acetaminophen Supp 650 Mg Supp.Rect) 650 mg NM Q6H PRN PRN Reason: Pain, Mild (Pain Scale 1-3) Desmopressin Acetate (Desmopressin Acetate Nasal 10 Mcg/0.1 Ml [place].Pump) 1 spray NOSTRILALT BID [facility] Last Admin: 04/14/23 09:04 Dose: 1 spray Documented By: CARLOS Enoxaparin Sodium (Enoxaparin Sodium 40 Mg/0.4 Ml Syringe) 40 mg SUBCUT Q24H [facility] Last Admin: 04/13/23 21:45 Dose: 40 mg Documented By: JAIDA Ferrous Sulfate (Ferrous Sulfate 324 Mg Tablet.Dr) 324 mg PO DAILY [facility] Last Admin: 04/14/23 09:05 Dose: 324 mg Documented By: CARLOS Fidaxomicin (Fidaxomicin 200 Mg Tablet) 200 mg PO Q12H [facility] Last Admin: 04/13/23 23:48 Dose: 200 mg Documented By: JAIDA Hydrocortisone (Hydrocortisone 10 Mg Tablet) 7.5 mg PO BEDTIME [facility] Hydrocortisone (Hydrocortisone 10 Mg Tablet) 10 mg PO DAILY [facility] Last Admin: 04/14/23 09:05 Dose: 10 mg Documented By: CARLOS Levothyroxine Sodium (Levothyroxine Sodium 125 Mcg Tablet) 125 mcg PO DAILY@0600 [facility] Last Admin: 04/14/23 05:29 Dose: 125 mcg Documented By: JAIDA Melatonin (Melatonin 3 Mg Tablet) 6 mg PO BEDTIME PRN PRN Reason: Insomnia Pt Own (Testosterone 20.25 Mg/1.25 Gram (1.62 %) Gel In Metered-Dose Pum 1 pump TOPICAL DAILY [facility] Last Admin: 04/14/23 09:18 Dose: Not Given Documented By: CARLOS Non-Admin Reason: family to bring Ondansetron HCl (Ondansetron Hcl 4 Mg/2 Ml Vial) 4 mg IVPUSH Q8H PRN PRN Reason: Nausea and Vomiting Sodium Bicarbonate (Sodium Bicarbonate 650 Mg Tablet) 650 mg PO BID [facility] Last Admin: 04/14/23 09:05 Dose: 650 mg Documented By: CARLOS Sodium Chloride (0.9 % Sodium Chloride Flush 3 Ml Syringe) 3 ml IVFLUSH QSHIFT [facility] Last Admin: 04/14/23 09:02 Dose: Not Given Documented By: CARLOS Non-Admin Reason: IV Running Tamsulosin HCl (Tamsulosin Hcl 0.4 Mg Capsule) 0.8 mg PO DAILY [facility] Last Admin: 04/14/23 09:05 Dose: 0.8 mg Documented By: CARLOS Labs 04/14/23 09:06 04/13/23 13:38 Labs: Laboratory Results - last 24 hr 04/13/23 04/13/23 04/13/23 13:38 13:45 20:59 MCV 77.4 L MCH 23.9 L MCHC 30.9 L RDW 19.3 H Plt Count 394 MPV 9.5 Immature Gran % (Auto) 4.4 H Neut % (Auto) 68.3 Lymph % (Auto) 12.6 L [place] % (Auto) 12.0 H Eos % (Auto) 1.9 Baso % (Auto) 0.8 Lymph # (Auto) 1.7 [place] # (Auto) 1.6 H Eos # (Auto) 0.3 Baso # (Auto) 0.1 Abs Immat Gran (auto) 0.58 H Absolute Neuts (auto) 8.9 H Absolute Nucleated RBC 0.000 Nucleated RBC % (auto) 0.0 Smear Tech's Comments VERIFIED Anion Gap 15 Estim Creat Clear Calc 65.9 Estimated GFR > 60 Random Glucose 71 Lactic Acid 1.3 Calcium 8.1 L Magnesium 1.5 L Total Bilirubin 0.5 Direct Bilirubin 0.2 AST 6 ALT 6 Alkaline Phosphatase 86 Total Protein 6.0 L Albumin 2.8 L Urine Color Yellow Urine Appearance Clear Urine pH 6.0 Ur Specific [place] 1.010 Urine Protein 30 (1+) H Urine Glucose (UA) Negative Urine Ketones Trace Urine Blood Trace H Urine Nitrite Negative Ur Leukocyte Esterase Moderate (2+) H Urine RBC 6-10 H Urine WBC >50 H Ur Squamous Epith Cells 0-2 Urine Bacteria None Seen Hyaline Casts 0-2 Urine Yeast Present Stl C. cayetanensis PCR Stool Rotavirus A PCR Stl Adenov F / PCR Stool Astrovirus (PCR) Stool Campylobacter PCR Stool Cryptosporidium PCR Stl Sh Tox Pr E STEC PCR Stool E coli O157 PCR Stl Enterotoxigenic E PCR Stool EPEC (PCR) Stool EAEC (PCR) Stl E. histolytica PCR Stool Giardia Lamblia PCR Stl P. shigelloides PCR Stool Salmonella PCR Stool Sapovirus (PCR) Stl Shigella/EIEC PCR St Y.enterocolitica PCR Stool Vibrio (PCR) Stl Vibrio cholerae PCR Stl Norovirus GI/GII PCR C. difficile Tox B Gene POSITIVE A* C. difficile Toxin A&B Positive A* C. difficile Interpret SEE NOTE 04/13/23 22:14 MCV MCH MCHC RDW Plt Count MPV Immature Gran % (Auto) Neut % (Auto) Lymph % (Auto) [place] % (Auto) Eos % (Auto) Baso % (Auto) Lymph # (Auto) [place] # (Auto) Eos # (Auto) Baso # (Auto) Abs Immat Gran (auto) Absolute Neuts (auto) Absolute Nucleated RBC Nucleated RBC % (auto) Smear Tech's Comments Anion Gap Estim Creat Clear Calc Estimated GFR Random Glucose Lactic Acid Calcium Magnesium Total Bilirubin Direct Bilirubin AST ALT Alkaline Phosphatase Total Protein Albumin Urine Color Urine Appearance Urine pH Ur Specific [place] Urine Protein Urine Glucose (UA) Urine Ketones Urine Blood Urine Nitrite Ur Leukocyte Esterase Urine RBC Urine WBC Ur Squamous Epith Cells Urine Bacteria Hyaline Casts Urine Yeast Stl C. cayetanensis PCR Not Detected Stool Rotavirus A PCR Not Detected Stl Adenov F PCR Not Detected Stool Astrovirus (PCR) Not Detected Stool Campylobacter PCR Not Detected Stool Cryptosporidium PCR Not Detected Stl Sh Tox Pr E STEC PCR Not Detected Stool E coli O157 PCR Not applicable Stl Enterotoxigenic E PCR Not Detected Stool EPEC (PCR) Not Detected Stool EAEC (PCR) Not Detected Stl E. histolytica PCR Not Detected Stool Giardia Lamblia PCR Not Detected Stl P. shigelloides PCR Not Detected Stool Salmonella PCR Not Detected Stool Sapovirus (PCR) Not Detected Stl Shigella/EIEC PCR Not Detected St Y.enterocolitica PCR Not Detected Stool Vibrio (PCR) Not Detected Stl Vibrio cholerae PCR Not Detected Stl Norovirus GI/GII PCR Not Detected C. difficile Tox B Gene C. difficile Toxin A&B C. difficile Interpret Assessment and Plan (1) Clostridium difficile colitis: Status: Acute Plan 58M PMH erdheim jasmin disease, panhypopituitarism, hypothyroid, hypogonadism, diabetes insipidus, cerebellar ataxia, optic neuropathy, dysarthria, autonomic dysfunction, hydrocephalus, htn, chronic constipation, osteoporosis, kidney stones, ureteral stents, bph, urinary retention, depression, and anxiety, presented with weakness, hypotension. hypotension, dehydration, acute hypokalemia, acute metabolic encephaloapthy, hypernatremia, hypomagnesemia due to cdif colitis hydration, electrolyte replacement, dificid monitor hypothyroid synthroid diabetes insipidus, ddavp dvt prophylaxis - lovenox full code reason for continued hospitalization: diarrhea Time Spent With Patient Time: Total time managing care of this patient today ____ minutes. Quality Stroke Does the patient have a stroke diagnosis?: No VTE Prior VTE?: No VTE Risk Level:: Medical - moderate - high VTE Device Contraindication: Treatment Not Indicated VTE Drug Contraindication: N/A - Med Ordered
[2023-04-14 10:25] LABS: Hematocrit 36.7 % (42.0-52.0); Hemoglobin 11.4 g/dl (14.0-18.0); Mean Corpuscular HGB Conc 31.1 g/dl (31.0-36.0); Mean Corpuscular Hemoglobin 24.3 pg (27.0-33.0); Mean Corpuscular Volume 78.1 fL (80.0-98.0); Mean Platelet Volume 10.4 fL (9.4-12.4); NRBC Pct Auto 0.2 /100WBC (0.0-0.2); Platelet Count 338 X10*3/uL (160-400); Red Cell Distribution Width 19.5 % (11.0-16.0); White Blood Count 11.6 X10*3/uL (4.8-10.8)
[2023-04-14 10:42] LABS: Anion Gap 15 (12-20); Blood Urea Nitrogen 11 mg/dL (9-16); Carbon Dioxide 15 mmol/L (22-29); Chloride 123 mmol/L (96-108); Estimated Glomerular Filt Rate > 60; Glucose Random 64 mg/dL (60-115); Magnesium 2.5 mg/dL (1.6-2.6); Potassium 3.4 mmol/L (3.3-5.1); Sodium 150 mmol/L (135-145)
[2023-04-14 10:52] LABS: Atypical Lymph Absolute Manual 0.2 x10*3/uL; Atypical Lymphs Percent Manual 2 % (0-6); Band Neutrophils Percent 15 % (3-5); Eosinophils Absolute Manual 0.2 X10*3/uL (0.0-0.4); Eosinophils Percent Manual 2 % (0-4); Lymphocytes Percent Manual 17 % (20-40); Monocytes Absolute Manual 0.5 X10*3/uL (0.1-1.2); Monocytes Percent Manual 4 % (2-11); Neutrophils Absolute Manual 8.7 X10*3/uL (2.0-8.3); Neutrophils Percent Manual 60 % (45-73)
[2023-04-14 10:54] LABS: Acanthocytes 1+ (0-2) /OIF; Ovalocytes 2+ (15-30) /OIF; Platelet Estimate NORMAL (NORMAL); Platelet Morphology Comment NORMAL; RBC Morphology NOTED
[2023-04-14 10:55] LABS: Burr Cells 3+ (>5) /OIF; Schistocytes 1+ (0-2) /OIF; Tear Drop Cells 1+ (0-2) /OIF
[2023-04-14] MEDS: Fidaxomicin 200 MG TABLET PO ×2 (12:09→23:57)
[2023-04-14 15:25] VITALS: BP 90/55; PULSE 82; RESP 18; TEMP 36.3; O2SAT 98
[2023-04-14 19:24] VITALS: BP 101/60; PULSE 83; RESP 18; TEMP 36.2; O2SAT 100
[2023-04-14] MEDS: Enoxaparin Sodium 40 MG/0.4 ML SYRINGE SUBCUT (23:57)
[2023-04-14] MEDS: 0.9 % Sodium Chloride Flush 3 ML SYRINGE IVFLUSH (23:58)
[2023-04-15 04:00] VITALS: BP 112/68; PULSE 76; RESP 18; TEMP 36.3; O2SAT 98
[2023-04-15 06:06] LABS: Hematocrit 35.9 % (42.0-52.0); Hemoglobin 10.9 g/dl (14.0-18.0); Mean Corpuscular HGB Conc 30.4 g/dl (31.0-36.0); Mean Corpuscular Hemoglobin 23.3 pg (27.0-33.0); Mean Corpuscular Volume 76.9 fL (80.0-98.0); Mean Platelet Volume 9.7 fL (9.4-12.4); Platelet Count 310 X10*3/uL (160-400); Red Blood Count 4.67 X10*6/uL (4.60-5.80); Red Cell Distribution Width 19.9 % (11.0-16.0)
[2023-04-15] MEDS: Levothyroxine Sodium 125 MCG TABLET PO (06:26)
[2023-04-15 06:28] LABS: Anion Gap 14 (12-20); Blood Urea Nitrogen 14 mg/dL (9-16); Calcium 8.2 mg/dL (8.4-10.2); Carbon Dioxide 16 mmol/L (22-29); Chloride 124 mmol/L (96-108); Creatinine Clr Calc Pharmacy 69.3; Estimated Glomerular Filt Rate > 60; Glucose Fasting 79 mg/dL (60-99); Iron 26 mcg/dL (45-160); Magnesium 2.4 mg/dL (1.6-2.6); Percent Iron Saturation 20 % (15-50); Potassium 3.3 mmol/L (3.3-5.1); Sodium 151 mmol/L (135-145); Total Iron Binding Capacity 129 mcg/dL (228-428); Unsaturated Iron Binding 103 ug/dL
[2023-04-15 07:59] VITALS: BP 100/58; PULSE 85; RESP 18; TEMP 36.1; O2SAT 90
[2023-04-15] MEDS: Tamsulosin HCL 0.4 MG CAPSULE 0.8 MG PO (09:48)
[2023-04-15] MEDS: Hydrocortisone 10 MG TABLET PO (09:48)
[2023-04-15] MEDS: Fidaxomicin 200 MG TABLET PO ×2 (09:48→22:56)
[2023-04-15] MEDS: Ferrous Sulfate 324 MG TABLET.DR PO (09:48)
[2023-04-15] MEDS: Dextrose 5 % 1,000 ML 100 ML IVCONT ×2 (09:48→22:37)
[2023-04-15] MEDS: Sodium Bicarbonate 650 MG TABLET PO ×2 (09:48→22:55)
[2023-04-15] MEDS: 0.9 % Sodium Chloride Flush 3 ML SYRINGE IVFLUSH (09:49)
[2023-04-15] MEDS: Acetaminophen 325 MG TABLET 650 MG PO (11:35)
--- NOTE | 2023-04-15 12:23 | HO.PM.IMPN ---
Subjective Subjective Date of Service: 04/15/23 Review of Systems Review of Systems: Yes Unobtainable due to mental condition Physical Exam Vital Signs: Vital Signs: Last Vital Signs Temp 96.9 F 04/15/23 07:59 Pulse 85 04/15/23 07:59 Resp 18 04/15/23 07:59 BP 100/58 L 04/15/23 07:59 Pulse Ox 90 L 04/15/23 07:59 O2 Del Method Room Air 04/15/23 04:00 BMI result Body Mass Index 21.6 lethargic, weak, ill appearing Objective Data Active Medications Acetaminophen (Acetaminophen 325 Mg Tablet) 650 mg PO Q6H PRN PRN Reason: Pain, Mild (Pain Scale 1-3) Last Admin: 04/15/23 11:35 Dose: 650 mg Documented By: MELLY Acetaminophen (Acetaminophen Supp 650 Mg Supp.Rect) 650 mg [place] Q6H PRN PRN Reason: Pain, Mild (Pain Scale 1-3) Desmopressin Acetate (Desmopressin Acetate Nasal 10 Mcg/0.1 Ml [place].Pump) 1 spray NOSTRILALT BID [facility] Last Admin: 04/15/23 09:51 Dose: 1 spray Documented By: MELLY Enoxaparin Sodium (Enoxaparin Sodium 40 Mg/0.4 Ml Syringe) 40 mg SUBCUT Q24H [facility] Last Admin: 04/14/23 23:57 Dose: 40 mg Documented By: TERESA Ferrous Sulfate (Ferrous Sulfate 324 Mg Tablet.) 324 mg PO DAILY [facility] Last Admin: 04/15/23 09:48 Dose: 324 mg Documented By: MELLY Fidaxomicin (Fidaxomicin 200 Mg Tablet) 200 mg PO Q12H [facility] Last Admin: 04/15/23 09:48 Dose: 200 mg Documented By: MELLY Hydrocortisone (Hydrocortisone 10 Mg Tablet) 10 mg PO DAILY [facility] Last Admin: 04/15/23 09:48 Dose: 10 mg Documented By: MELLY Dextrose (D5w) 1,000 mls @ 100 mls/hr IVCONT .Q10H [facility] Last Admin: 04/15/23 09:48 Dose: 100 mls/hr Documented By: MELLY Levothyroxine Sodium (Levothyroxine Sodium 125 Mcg Tablet) 125 mcg PO DAILY@0600 [facility] Last Admin: 04/15/23 06:26 Dose: 125 mcg Documented By: TERESA Melatonin (Melatonin 3 Mg Tablet) 6 mg PO BEDTIME PRN PRN Reason: Insomnia Pt Own (Testosterone 20.25 Mg/1.25 Gram (1.62 %) Gel In Metered-Dose Pum 1 pump TOPICAL DAILY [facility] Last Admin: 04/15/23 09:48 Dose: 1 pump Documented By: MELLY Pt Own ( Hydrocortisone 5 Mg Tablet) 7.5 mg PO BEDTIME YARY Ondansetron HCl (Ondansetron Hcl 4 Mg/2 Ml Vial) 4 mg IVPUSH Q8H PRN PRN Reason: Nausea and Vomiting Sodium Bicarbonate (Sodium Bicarbonate 650 Mg Tablet) 650 mg PO BID [facility] Last Admin: 04/15/23 09:48 Dose: 650 mg Documented By: MELLY Sodium Chloride (0.9 % Sodium Chloride Flush 3 Ml Syringe) 3 ml IVFLUSH QSHIFT [facility] Last Admin: 04/15/23 09:49 Dose: 3 ml Documented By: MELLY Tamsulosin HCl (Tamsulosin Hcl 0.4 Mg Capsule) 0.8 mg PO DAILY [facility] Last Admin: 04/15/23 09:48 Dose: 0.8 mg Documented By: MELLY Labs 04/15/23 05:48 04/15/23 05:48 Labs: Laboratory Results - last 24 hr 04/15/23 05:48 MCV 76.9 L MCH 23.3 L MCHC 30.4 L RDW 19.9 H Plt Count 310 MPV 9.7 Absolute Nucleated RBC 0.000 Nucleated RBC % (auto) 0.0 Anion Gap 14 Estim Creat Clear Calc 69.3 Estimated GFR > 60 Fasting Glucose 79 Calcium 8.2 L Magnesium 2.4 Iron 26 L TIBC 129 L % Saturation 20 Unsat Iron Binding 103 Microbiology Microbiology Results: Microbiology 04/13/23 13:45 Blood Culture - Preliminary Blood - Venous No growth after 24 hours. 04/13/23 13:38 Blood Culture - Preliminary Blood - Venous No growth after 24 hours. 04/13/23 Unknown Urine Culture - Final Urine clean catch - Urine [place] Assessment and Plan (1) Clostridium difficile colitis: Status: Acute Plan 58M PMH erdheim jasmin disease, panhypopituitarism, hypothyroid, hypogonadism, diabetes insipidus, cerebellar ataxia, optic neuropathy, dysarthria, autonomic dysfunction, hydrocephalus, htn, chronic constipation, osteoporosis, kidney stones, ureteral stents, bph, urinary retention, depression, and anxiety, presented with weakness, hypotension. hypotension, dehydration, acute hypokalemia, acute metabolic encephaloapthy, hypernatremia, hypomagnesemia due to cdif colitis dificid monitor hypothyroid synthroid diabetes insipidus with hypernatremia ddavp, d5w, monitor dvt prophylaxis - lovenox full code reason for continued hospitalization: diarrhea Time Spent With Patient Time: Total time managing care of this patient today ____ minutes. Quality Stroke Does the patient have a stroke diagnosis?: No VTE Prior VTE?: No VTE Risk Level:: Medical - moderate - high VTE Device Contraindication: Treatment Not Indicated VTE Drug Contraindication: N/A - Med Ordered
[2023-04-15 16:00] VITALS: BP 103/65; PULSE 70; RESP 16; TEMP 35.1; O2SAT 100
[2023-04-15 20:00] VITALS: BP 112/65; PULSE 66; RESP 16; TEMP 35.2; O2SAT 99
[2023-04-15] MEDS: Enoxaparin Sodium 40 MG/0.4 ML SYRINGE SUBCUT (22:57)
[2023-04-16] VITALS (7 sets, daily range): BP systolic 105–128; BP diastolic 56–67; PULSE 58–74; RESP 12–16; TEMP 34.3–37.3; O2SAT 99–100
[2023-04-16] MEDS: Levothyroxine Sodium 125 MCG TABLET PO (06:47)
[2023-04-16 06:50] LABS: Hematocrit 32.5 % (42.0-52.0); Hemoglobin 10.2 g/dl (14.0-18.0); Mean Corpuscular HGB Conc 31.4 g/dl (31.0-36.0); Mean Corpuscular Hemoglobin 24.1 pg (27.0-33.0); Mean Corpuscular Volume 76.7 fL (80.0-98.0); Mean Platelet Volume 10.1 fL (9.4-12.4); Platelet Count 250 X10*3/uL (160-400); Red Blood Count 4.24 X10*6/uL (4.60-5.80); Red Cell Distribution Width 19.8 % (11.0-16.0)
[2023-04-16 07:07] LABS: Anion Gap 11 (12-20); Blood Urea Nitrogen 15 mg/dL (9-16); Calcium 7.4 mg/dL (8.4-10.2); Carbon Dioxide 16 mmol/L (22-29); Chloride 120 mmol/L (96-108); Creatinine Clr Calc Pharmacy 81.7; Estimated Glomerular Filt Rate > 60; Glucose Fasting 137 mg/dL (60-99); Potassium 2.8 mmol/L (3.3-5.1); Sodium 144 mmol/L (135-145)
[2023-04-16] MEDS: Sodium Bicarbonate 8.4% 150 MEQ in Dextrose 5 % 850 ML 100 MEQ IV ×2 (09:45→19:41)
[2023-04-16] MEDS: Hydrocortisone 10 MG TABLET PO (09:47)
[2023-04-16] MEDS: Ferrous Sulfate 324 MG TABLET.DR PO (09:47)
[2023-04-16] MEDS: Fidaxomicin 200 MG TABLET PO ×2 (09:47→22:59)
[2023-04-16] MEDS: Tamsulosin HCL 0.4 MG CAPSULE 0.8 MG PO (09:47)
[2023-04-16] MEDS: Sodium Bicarbonate 650 MG TABLET PO ×2 (09:47→19:29)
[2023-04-16] MEDS: 0.9 % Sodium Chloride Flush 3 ML SYRINGE IVFLUSH (09:48)
[2023-04-16] MEDS: Potassium Chloride Packet 20 MEQ PACKET 40 MEQ PO ×2 (09:48→11:29)
--- NOTE | 2023-04-16 10:52 | HO.PM.IMPN ---
Subjective Subjective Date of Service: 04/16/23 Review of Systems Review of Systems: Yes Unobtainable due to mental condition Physical Exam Vital Signs: Vital Signs: Last Vital Signs Temp 97.3 F 04/16/23 07:38 Pulse 74 04/16/23 07:38 Resp 12 04/16/23 07:38 BP 105/56 L 04/16/23 07:38 Pulse Ox 99 04/16/23 07:38 O2 Del Method Room Air 04/16/23 07:38 BMI result Body Mass Index 21.6 lethargic, weak, ill appearing Objective Data Active Medications Acetaminophen (Acetaminophen 325 Mg Tablet) 650 mg PO Q6H PRN PRN Reason: Pain, Mild (Pain Scale 1-3) Last Admin: 04/15/23 11:35 Dose: 650 mg Documented By: MELLY Acetaminophen (Acetaminophen Supp 650 Mg Supp.Rect) 650 mg [place] Q6H PRN PRN Reason: Pain, Mild (Pain Scale 1-3) Desmopressin Acetate (Desmopressin Acetate Nasal 10 Mcg/0.1 Ml [place].Pump) 1 spray NOSTRILALT BID [facility] Last Admin: 04/16/23 09:48 Dose: 1 spray Documented By: GONZALEZ Enoxaparin Sodium (Enoxaparin Sodium 40 Mg/0.4 Ml Syringe) 40 mg SUBCUT Q24H [facility] Last Admin: 04/15/23 22:57 Dose: 40 mg Documented By: TERESA Ferrous Sulfate (Ferrous Sulfate 324 Mg Tablet.) 324 mg PO DAILY [facility] Last Admin: 04/16/23 09:47 Dose: 324 mg Documented By: GONZALEZ Fidaxomicin (Fidaxomicin 200 Mg Tablet) 200 mg PO Q12H [facility] Last Admin: 04/16/23 09:47 Dose: 200 mg Documented By: GONZALEZ Hydrocortisone (Hydrocortisone 10 Mg Tablet) 10 mg PO DAILY [facility] Last Admin: 04/16/23 09:47 Dose: 10 mg Documented By: GONZALEZ Sodium Bicarbonate 150 meq/ (Dextrose) 1,000 mls @ 100 mls/hr IV .Q10H [facility] Last Admin: 04/16/23 09:45 Dose: 100 mls/hr Documented By: GONZALEZ Levothyroxine Sodium (Levothyroxine Sodium 125 Mcg Tablet) 125 mcg PO DAILY@0600 [facility] Last Admin: 04/16/23 06:47 Dose: 125 mcg Documented By: TERESA Melatonin (Melatonin 3 Mg Tablet) 6 mg PO BEDTIME PRN PRN Reason: Insomnia Pt Own (Testosterone 20.25 Mg/1.25 Gram (1.62 %) Gel In Metered-Dose Pum 1 pump TOPICAL DAILY [facility] Last Admin: 04/16/23 10:15 Dose: Not Given Documented By: GONZALEZ Non-Admin Reason: Med Not Available Pt Own ( Hydrocortisone 5 Mg Tablet) 7.5 mg PO BEDTIME [facility] Last Admin: 04/15/23 22:56 Dose: 7.5 mg Documented By: TERESA Ondansetron HCl (Ondansetron Hcl 4 Mg/2 Ml Vial) 4 mg IVPUSH Q8H PRN PRN Reason: Nausea and Vomiting Potassium Chloride (Potassium Chloride Packet 20 Meq Packet) 40 meq PO ONCE ONE Stop: 04/16/23 11:31 Sodium Bicarbonate (Sodium Bicarbonate 650 Mg Tablet) 650 mg PO BID [facility] Last Admin: 04/16/23 09:47 Dose: 650 mg Documented By: GONZALEZ Sodium Chloride (0.9 % Sodium Chloride Flush 3 Ml Syringe) 3 ml IVFLUSH QSHIFT [facility] Last Admin: 04/16/23 09:48 Dose: 3 ml Documented By: GONZALEZ Tamsulosin HCl (Tamsulosin Hcl 0.4 Mg Capsule) 0.8 mg PO DAILY [facility] Last Admin: 04/16/23 09:47 Dose: 0.8 mg Documented By: GONZALEZ Labs 04/16/23 06:14 04/16/23 06:14 Labs: Laboratory Results - last 24 hr 04/16/23 06:14 MCV 76.7 L MCH 24.1 L MCHC 31.4 RDW 19.8 H Plt Count 250 MPV 10.1 Absolute Nucleated RBC 0.000 Nucleated RBC % (auto) 0.0 Anion Gap 11 L Estim Creat Clear Calc 81.7 Estimated GFR > 60 Fasting Glucose 137 H Calcium 7.4 L D Microbiology Microbiology Results: Microbiology 04/13/23 13:45 Blood Culture - Preliminary Blood - Venous No growth after 48 hours. 04/13/23 13:38 Blood Culture - Preliminary Blood - Venous No growth after 48 hours. Assessment and Plan (1) Clostridium difficile colitis: Status: Acute Plan 58M PMH erdheim jasmin disease, panhypopituitarism, hypothyroid, hypogonadism, diabetes insipidus, cerebellar ataxia, optic neuropathy, dysarthria, autonomic dysfunction, hydrocephalus, htn, chronic constipation, osteoporosis, kidney stones, ureteral stents, bph, urinary retention, depression, and anxiety, presented with weakness, hypotension. hypotension, dehydration, acute hypokalemia, acute metabolic encephaloapthy, hypernatremia, hypomagnesemia due to cdif colitis dificid monitor hypothyroid synthroid diabetes insipidus with hypernatremia ddavp, d5w, monitor acute hypokalemia replace, monitor dvt prophylaxis - lovenox full code reason for continued hospitalization: diarrhea Time Spent With Patient Time: Total time managing care of this patient today ____ minutes. Quality Stroke Does the patient have a stroke diagnosis?: No VTE Prior VTE?: No VTE Risk Level:: Medical - moderate - high VTE Device Contraindication: Treatment Not Indicated VTE Drug Contraindication: N/A - Med Ordered
[2023-04-16] MEDS: Enoxaparin Sodium 40 MG/0.4 ML SYRINGE SUBCUT (19:29)
[2023-04-17 02:57] VITALS: BP 146/72; PULSE 57; RESP 14; TEMP 36.4; O2SAT 98
[2023-04-17] MEDS: Levothyroxine Sodium 125 MCG TABLET PO (06:00)
[2023-04-17] MEDS: Sodium Bicarbonate 8.4% 150 MEQ in Dextrose 5 % 850 ML 100 MEQ IV (06:00)
[2023-04-17 06:34] LABS: Hematocrit 29.9 % (42.0-52.0); Hemoglobin 9.5 g/dl (14.0-18.0); Mean Corpuscular HGB Conc 31.8 g/dl (31.0-36.0); Mean Corpuscular Hemoglobin 23.8 pg (27.0-33.0); Mean Corpuscular Volume 74.9 fL (80.0-98.0); Mean Platelet Volume 9.8 fL (9.4-12.4); Platelet Count 247 X10*3/uL (160-400); Red Blood Count 3.99 X10*6/uL (4.60-5.80); Red Cell Distribution Width 19.8 % (11.0-16.0)
[2023-04-17 06:56] LABS: Anion Gap 11 (12-20); Blood Urea Nitrogen 12 mg/dL (9-16); Calcium 7.2 mg/dL (8.4-10.2); Carbon Dioxide 25 mmol/L (22-29); Chloride 114 mmol/L (96-108); Creatinine Clr Calc Pharmacy 81.7; Estimated Glomerular Filt Rate > 60; Glucose Fasting 102 mg/dL (60-99); Potassium 3.1 mmol/L (3.3-5.1); Sodium 147 mmol/L (135-145)
[2023-04-17 07:35] VITALS: BP 127/68; PULSE 58; RESP 16; TEMP 36.2; O2SAT 99
[2023-04-17] MEDS: Hydrocortisone 10 MG TABLET PO (08:05)
[2023-04-17] MEDS: Potassium Chloride Packet 20 MEQ PACKET 40 MEQ PO (08:05)
[2023-04-17] MEDS: Tamsulosin HCL 0.4 MG CAPSULE 0.8 MG PO (08:05)
[2023-04-17] MEDS: Sodium Bicarbonate 650 MG TABLET PO ×2 (08:05→20:54)
[2023-04-17] MEDS: Ferrous Sulfate 324 MG TABLET.DR PO (08:05)
--- NOTE | 2023-04-17 09:05 | P.PNIM_ITS ---
Subjective Subjective Date of Service: 04/17/23 Review of Systems Review of Systems: Yes Unobtainable due to mental condition Physical Exam 2 Vital Signs: Vital Signs: Last Vital Signs Temp 97.1 F 04/17/23 07:35 Pulse 58 04/17/23 07:35 Resp 16 04/17/23 07:35 BP 127/68 04/17/23 07:35 Pulse Ox 99 04/17/23 07:35 O2 Del Method Room Air 04/17/23 07:35 BMI result Body Mass Index 21.6 lethargic, weak, ill appearing Objective Data Active Medications Acetaminophen (Acetaminophen 325 Mg Tablet) 650 mg PO Q6H PRN PRN Reason: Pain, Mild (Pain Scale 1-3) Last Admin: 04/15/23 11:35 Dose: 650 mg Documented By: MELLY Acetaminophen (Acetaminophen Supp 650 Mg Supp.Rect) 650 mg [place] Q6H PRN PRN Reason: Pain, Mild (Pain Scale 1-3) Desmopressin Acetate (Desmopressin Acetate Nasal 10 Mcg/0.1 Ml [place].Pump) 1 spray NOSTRILALT BID [facility] Last Admin: 04/17/23 08:06 Dose: 1 spray Documented By: [place] Enoxaparin Sodium (Enoxaparin Sodium 40 Mg/0.4 Ml Syringe) 40 mg SUBCUT Q24H [facility] Last Admin: 04/16/23 19:29 Dose: 40 mg Documented By: RICH Ferrous Sulfate (Ferrous Sulfate 324 Mg Tablet.) 324 mg PO DAILY [facility] Last Admin: 04/17/23 08:05 Dose: 324 mg Documented By: [place] Fidaxomicin (Fidaxomicin 200 Mg Tablet) 200 mg PO Q12H [facility] Last Admin: 04/16/23 22:59 Dose: 200 mg Documented By: RICH Hydrocortisone (Hydrocortisone 10 Mg Tablet) 10 mg PO DAILY [facility] Last Admin: 04/17/23 08:05 Dose: 10 mg Documented By: [place] Dextrose/Sodium Chloride (D51/2ns) 1,000 mls @ 80 mls/hr IVCONT .[id number] [facility] Levothyroxine Sodium (Levothyroxine Sodium 125 Mcg Tablet) 125 mcg PO DAILY@0600 [facility] Last Admin: 04/17/23 06:00 Dose: 125 mcg Documented By: HO.LYSZ Melatonin (Melatonin 3 Mg Tablet) 6 mg PO BEDTIME PRN PRN Reason: Insomnia Pt Own (Testosterone 20.25 Mg/1.25 Gram (1.62 %) Gel In Metered-Dose Pum 1 pump TOPICAL DAILY [facility] Last Admin: 04/17/23 08:05 Dose: 1 pump Documented By: [place] Pt Own ( Hydrocortisone 5 Mg Tablet) 7.5 mg PO BEDTIME [facility] Last Admin: 04/16/23 19:28 Dose: 7.5 mg Documented By: RICH Ondansetron HCl (Ondansetron Hcl 4 Mg/2 Ml Vial) 4 mg IVPUSH Q8H PRN PRN Reason: Nausea and Vomiting Sodium Bicarbonate (Sodium Bicarbonate 650 Mg Tablet) 650 mg PO BID [facility] Last Admin: 04/17/23 08:05 Dose: 650 mg Documented By: [place] Sodium Chloride (0.9 % Sodium Chloride Flush 3 Ml Syringe) 3 ml IVFLUSH QSHIFT [facility] Last Admin: 04/17/23 07:15 Dose: Not Given Documented By: [place] Non-Admin Reason: IV Running Tamsulosin HCl (Tamsulosin Hcl 0.4 Mg Capsule) 0.8 mg PO DAILY [facility] Last Admin: 04/17/23 08:05 Dose: 0.8 mg Documented By: [place] Labs 04/17/23 06:25 04/17/23 06:25 Labs: Laboratory Results - last 24 hr 04/17/23 06:25 MCV 74.9 L MCH 23.8 L MCHC 31.8 RDW 19.8 H Plt Count 247 MPV 9.8 Absolute Nucleated RBC 0.000 Nucleated RBC % (auto) 0.0 Anion Gap 11 L Estim Creat Clear Calc 81.7 Estimated GFR > 60 Fasting Glucose 102 H Calcium 7.2 L Assessment and Plan (1) Clostridium difficile colitis: Status: Acute Plan 58M PMH erdheim jasmin disease, panhypopituitarism, hypothyroid, hypogonadism, diabetes insipidus, cerebellar ataxia, optic neuropathy, dysarthria, autonomic dysfunction, hydrocephalus, htn, chronic constipation, osteoporosis, kidney stones, ureteral stents, bph, urinary retention, depression, and anxiety, presented with weakness, hypotension. hypotension, dehydration, acute hypokalemia, acute metabolic encephaloapthy, hypernatremia, hypomagnesemia due to cdif colitis dificid monitor continues to have diarrhea hypothyroid synthroid diabetes insipidus with hypernatremia ddavp, change to 1/2ns, monitor acute hypokalemia replace, monitor dvt prophylaxis - lovenox full code reason for continued hospitalization: diarrhea Time Spent With Patient Time: Total time managing care of this patient today ____ minutes. Quality Stroke Does the patient have a stroke diagnosis?: No VTE Prior VTE?: No VTE Risk Level:: Medical - moderate - high VTE Device Contraindication: Treatment Not Indicated VTE Drug Contraindication: N/A - Med Ordered
[2023-04-17] MEDS: Dextrose 5 % and 0.45 % NaCl 1,000 ML 80 ML IVCONT ×2 (09:15→20:52)
[2023-04-17] MEDS: Fidaxomicin 200 MG TABLET PO ×2 (10:49→23:45)
--- NOTE | 2023-04-17 15:25 | MHC.CM.PN ---
CM left phone messages for Pt's and mother in law re: IMM, DC plan, and to find out about prior services. Awaiting return call. Pt speech is slurred and he is not able to provide information.
[2023-04-17 15:33] VITALS: BP 128/66; PULSE 61; RESP 18; TEMP 36; O2SAT 100
[2023-04-17 20:00] VITALS: BP 145/77; PULSE 61; RESP 18; TEMP 36.3; O2SAT 100
[2023-04-17] MEDS: Enoxaparin Sodium 40 MG/0.4 ML SYRINGE SUBCUT (20:54)
[2023-04-18 04:00] VITALS: BP 150/75; PULSE 63; RESP 18; TEMP 36.2; O2SAT 96
[2023-04-18] MEDS: Levothyroxine Sodium 125 MCG TABLET PO (06:08)
[2023-04-18 06:41] LABS: Hematocrit 30.5 % (42.0-52.0); Hemoglobin 9.6 g/dl (14.0-18.0); Mean Corpuscular HGB Conc 31.5 g/dl (31.0-36.0); Mean Corpuscular Hemoglobin 24.1 pg (27.0-33.0); Mean Corpuscular Volume 76.4 fL (80.0-98.0); Mean Platelet Volume 10.6 fL (9.4-12.4); Platelet Count 236 X10*3/uL (160-400); Red Blood Count 3.99 X10*6/uL (4.60-5.80); Red Cell Distribution Width 19.6 % (11.0-16.0); White Blood Count 8.5 X10*3/uL (4.8-10.8)
[2023-04-18 07:04] LABS: Alanine Aminotransferase 8 U/L (0-40); Albumin Level 2.2 g/dL (3.5-5.0); Alkaline Phosphatase 68 U/L (39-117); Anion Gap 13 (12-20); Aspartate Amino Transferase 11 U/L (5-37); Bilirubin Direct 0.1 mg/dL (0.0-0.5); Bilirubin Total 0.3 mg/dL (0.0-1.0); Blood Urea Nitrogen 9 mg/dL (9-16); Calcium 7.3 mg/dL (8.4-10.2); Carbon Dioxide 23 mmol/L (22-29); Chloride 113 mmol/L (96-108); Creatinine Clr Calc Pharmacy 88.6; Estimated Glomerular Filt Rate > 60; Glucose Fasting 85 mg/dL (60-99); Magnesium 1.8 mg/dL (1.6-2.6); Potassium 3.5 mmol/L (3.3-5.1); Sodium 145 mmol/L (135-145); Total Protein 4.8 g/dL (6.5-8.0)
[2023-04-18 07:12] VITALS: BP 148/76; PULSE 65; RESP 20; TEMP 36.1; O2SAT 99
[2023-04-18] MEDS: 0.9 % Sodium Chloride Flush 3 ML SYRINGE IVFLUSH (08:19)
[2023-04-18] MEDS: Ferrous Sulfate 324 MG TABLET.DR PO (08:20)
[2023-04-18] MEDS: Sodium Bicarbonate 650 MG TABLET PO ×2 (08:20→20:00)
[2023-04-18] MEDS: Hydrocortisone 10 MG TABLET PO (08:20)
[2023-04-18] MEDS: Tamsulosin HCL 0.4 MG CAPSULE 0.8 MG PO (08:20)
[2023-04-18] MEDS: Dextrose 5 % and 0.45 % NaCl 1,000 ML 80 ML IVCONT ×2 (08:33→21:53)
--- NOTE | 2023-04-18 09:48 | HO.PM.IMPN ---
Subjective Subjective Date of Service: 04/18/23 Interval History: diarrhea Physical Exam Vital Signs: Vital Signs: Last Vital Signs Temp 97.0 F 04/18/23 07:12 Pulse 65 04/18/23 07:12 Resp 20 04/18/23 07:12 BP 148/76 H 04/18/23 07:12 Pulse Ox 99 04/18/23 07:12 O2 Del Method Room Air 04/18/23 07:12 BMI result Body Mass Index 21.6 lethargic, weak, ill appearing Objective Data Active Medications Acetaminophen (Acetaminophen 325 Mg Tablet) 650 mg PO Q6H PRN PRN Reason: Pain, Mild (Pain Scale 1-3) Last Admin: 04/15/23 11:35 Dose: 650 mg Documented By: MELLY Acetaminophen (Acetaminophen Supp 650 Mg Supp.Rect) 650 mg [place] Q6H PRN PRN Reason: Pain, Mild (Pain Scale 1-3) Desmopressin Acetate (Desmopressin Acetate Nasal 10 Mcg/0.1 Ml [place].Pump) 1 spray NOSTRILALT BID [facility] Last Admin: 04/18/23 08:21 Dose: 1 spray Documented By: HOPE Enoxaparin Sodium (Enoxaparin Sodium 40 Mg/0.4 Ml Syringe) 40 mg SUBCUT Q24H [facility] Last Admin: 04/17/23 20:54 Dose: 40 mg Documented By: RICH Ferrous Sulfate (Ferrous Sulfate 324 Mg Tablet.Dr) 324 mg PO DAILY [facility] Last Admin: 04/18/23 08:20 Dose: 324 mg Documented By: HOPE Fidaxomicin (Fidaxomicin 200 Mg Tablet) 200 mg PO Q12H [facility] Last Admin: 04/17/23 23:45 Dose: 200 mg Documented By: RICH Hydrocortisone (Hydrocortisone 10 Mg Tablet) 10 mg PO DAILY [facility] Last Admin: 04/18/23 08:20 Dose: 10 mg Documented By: HOPE Dextrose/Sodium Chloride (D51/2ns) 1,000 mls @ 80 mls/hr IVCONT .[id number] [facility] Last Admin: 04/18/23 08:33 Dose: 80 mls/hr Documented By: HOPE Levothyroxine Sodium (Levothyroxine Sodium 125 Mcg Tablet) 125 mcg PO DAILY@0600 [facility] Last Admin: 04/18/23 06:08 Dose: 125 mcg Documented By: RICH Melatonin (Melatonin 3 Mg Tablet) 6 mg PO BEDTIME PRN PRN Reason: Insomnia Pt Own (Testosterone 20.25 Mg/1.25 Gram (1.62 %) Gel In Metered-Dose Pum 1 pump TOPICAL DAILY [facility] Last Admin: 04/17/23 08:05 Dose: 1 pump Documented By: [place] Pt Own ( Hydrocortisone 5 Mg Tablet) 7.5 mg PO BEDTIME [facility] Last Admin: 04/17/23 20:52 Dose: 7.5 mg Documented By: RICH Ondansetron HCl (Ondansetron Hcl 4 Mg/2 Ml Vial) 4 mg IVPUSH Q8H PRN PRN Reason: Nausea and Vomiting Sodium Bicarbonate (Sodium Bicarbonate 650 Mg Tablet) 650 mg PO BID [facility] Last Admin: 04/18/23 08:20 Dose: 650 mg Documented By: HOPE Sodium Chloride (0.9 % Sodium Chloride Flush 3 Ml Syringe) 3 ml IVFLUSH QSHIFT [facility] Last Admin: 04/18/23 08:19 Dose: 3 ml Documented By: HOPE Tamsulosin HCl (Tamsulosin Hcl 0.4 Mg Capsule) 0.8 mg PO DAILY [facility] Last Admin: 04/18/23 08:20 Dose: 0.8 mg Documented By: HOPE Labs 04/18/23 06:01 04/18/23 06:01 Labs: Laboratory Results - last 24 hr 04/18/23 06:01 MCV 76.4 L MCH 24.1 L MCHC 31.5 RDW 19.6 H Plt Count 236 MPV 10.6 Absolute Nucleated RBC 0.000 Nucleated RBC % (auto) 0.0 Anion Gap 13 Estim Creat Clear Calc 88.6 Estimated GFR > 60 Fasting Glucose 85 Calcium 7.3 L Magnesium 1.8 Total Bilirubin 0.3 Direct Bilirubin 0.1 AST 11 ALT 8 Alkaline Phosphatase 68 Total Protein 4.8 L Albumin 2.2 L Assessment and Plan (1) Clostridium difficile colitis: Status: Acute Plan 58M PMH erdheim jasmin disease, panhypopituitarism, hypothyroid, hypogonadism, diabetes insipidus, cerebellar ataxia, optic neuropathy, dysarthria, autonomic dysfunction, hydrocephalus, htn, chronic constipation, osteoporosis, kidney stones, ureteral stents, bph, urinary retention, depression, and anxiety, presented with weakness, hypotension. hypotension, dehydration, acute hypokalemia, acute metabolic encephaloapthy, hypernatremia, hypomagnesemia due to cdif colitis dificid monitor continues to have diarrhea, as patient has already received several days of dificid, risk for toxic megacolon significantly reduced, will start as needed imodium hypothyroid synthroid diabetes insipidus with hypernatremia ddavp, change to 1/2ns, monitor acute hypokalemia replaced dvt prophylaxis - lovenox full code reason for continued hospitalization: diarrhea Time Spent With Patient Time: Total time managing care of this patient today ____ minutes. Quality Stroke Does the patient have a stroke diagnosis?: No VTE Prior VTE?: No VTE Risk Level:: Medical - moderate - high VTE Device Contraindication: Treatment Not Indicated VTE Drug Contraindication: N/A - Med Ordered
[2023-04-18] MEDS: Fidaxomicin 200 MG TABLET PO ×2 (11:05→22:25)
[2023-04-18 15:52] VITALS: BP 125/65; PULSE 68; RESP 16; TEMP 35.7; O2SAT 98
[2023-04-18 20:00] VITALS: BP 132/71; PULSE 69; RESP 16; TEMP 36.7; O2SAT 98
[2023-04-18] MEDS: Enoxaparin Sodium 40 MG/0.4 ML SYRINGE SUBCUT (20:00)
[2023-04-19 00:32] VITALS: BP 150/81; PULSE 68; RESP 18; TEMP 36.6; O2SAT 98
[2023-04-19] MEDS: Levothyroxine Sodium 125 MCG TABLET PO (05:59)
[2023-04-19 06:46] LABS: Hematocrit 29.1 % (42.0-52.0); Hemoglobin 9.2 g/dl (14.0-18.0); Mean Corpuscular HGB Conc 31.6 g/dl (31.0-36.0); Mean Platelet Volume 10.6 fL (9.4-12.4); Platelet Count 218 X10*3/uL (160-400); Red Blood Count 3.83 X10*6/uL (4.60-5.80); Red Cell Distribution Width 19.9 % (11.0-16.0); White Blood Count 9.1 X10*3/uL (4.8-10.8)
[2023-04-19 06:52] LABS: Anion Gap 11 (12-20); Blood Urea Nitrogen 7 mg/dL (9-16); Calcium 7.4 mg/dL (8.4-10.2); Carbon Dioxide 23 mmol/L (22-29); Chloride 111 mmol/L (96-108); Creatinine Clr Calc Pharmacy 90.8; Estimated Glomerular Filt Rate > 60; Glucose Fasting 75 mg/dL (60-99); Potassium 3.2 mmol/L (3.3-5.1); Sodium 142 mmol/L (135-145)
[2023-04-19 08:00] VITALS: BP 122/69; PULSE 71; RESP 17; TEMP 36.5; O2SAT 100
[2023-04-19] MEDS: Tamsulosin HCL 0.4 MG CAPSULE 0.8 MG PO (09:37)
[2023-04-19] MEDS: Ferrous Sulfate 324 MG TABLET.DR PO (09:38)
[2023-04-19] MEDS: Sodium Bicarbonate 650 MG TABLET PO ×2 (09:38→20:00)
[2023-04-19] MEDS: Hydrocortisone 10 MG TABLET PO (09:38)
[2023-04-19 09:46] VITALS: BMI 21.6
--- NOTE | 2023-04-19 10:03 | MHC.CLN ---
Addendum entered by Andree Gomez, HIREN 04/19/23 12:06: INCREASING FORTIFIED ICE CREAM TO TID PER COMMUNICATION WITH PATIENT. PROVIDES 870 KCALS, 27 G PROTEIN. MAGIC CUP APPROPRIATE FOR NECTAR THICK LIQUIDS. Original Note: NUTRITION PO INTAKE USUALLY LESS THAN OR EQUAL TO 25% X 6 DAYS. DIET=REGULAR, NDD2 CONSISTENCY, NECTAR THICK LIQUIDS. SKIN WITH REDNESS TO MEDIAL BUTTOCK. CHANGING SUPPLEMENT TO FORTIFIED ICE CREAM BID. PROVIDES ADDITIONAL 580 KCALS, 18 G PROTEIN. ENCOURAGE INTAKE ABLE. FOLLOW FOR PO INTAKE, DIET TOLERANCE, SKIN INTEGRITY. SEE CLINICAL NUTRITION ASSESSMENT 04/19/23.
--- NOTE | 2023-04-19 10:10 | HO.PM.IMPN ---
Subjective Subjective Date of Service: 04/19/23 Interval History: diarrhea starting to slow down, more energetic, awake, better appetite Physical Exam Vital Signs: Vital Signs: Last Vital Signs Temp 97.7 F 04/19/23 08:00 Pulse 71 04/19/23 08:00 Resp 17 04/19/23 08:00 BP 122/69 04/19/23 08:00 Pulse Ox 100 04/19/23 08:00 O2 Del Method Room Air 04/19/23 08:00 BMI result Body Mass Index 21.6 alert, dysarthric, abd soft non tender Objective Data Active Medications Acetaminophen (Acetaminophen 325 Mg Tablet) 650 mg PO Q6H PRN PRN Reason: Pain, Mild (Pain Scale 1-3) Last Admin: 04/15/23 11:35 Dose: 650 mg Documented By: MELLY Acetaminophen (Acetaminophen Supp 650 Mg Supp.Rect) [address] Q6H PRN PRN Reason: Pain, Mild (Pain Scale 1-3) Desmopressin Acetate (Desmopressin Acetate Nasal 10 Mcg/0.1 Ml [place].Pump) 1 spray NOSTRILALT BID [facility] Last Admin: 04/18/23 20:00 Dose: 1 spray Documented By: CIARAN Enoxaparin Sodium (Enoxaparin Sodium 40 Mg/0.4 Ml Syringe) 40 mg SUBCUT Q24H [facility] Last Admin: 04/18/23 20:00 Dose: 40 mg Documented By: CIARAN Ferrous Sulfate (Ferrous Sulfate 324 Mg Tablet.) 324 mg PO DAILY [facility] Last Admin: 04/19/23 09:38 Dose: 324 mg Documented By: MELLY Fidaxomicin (Fidaxomicin 200 Mg Tablet) 200 mg PO Q12H [facility] Last Admin: 04/18/23 22:25 Dose: 200 mg Documented By: CIARAN Hydrocortisone (Hydrocortisone 10 Mg Tablet) 10 mg PO DAILY [facility] Last Admin: 04/19/23 09:38 Dose: 10 mg Documented By: MELLY Levothyroxine Sodium (Levothyroxine Sodium 125 Mcg Tablet) 125 mcg PO DAILY@0600 [facility] Last Admin: 04/19/23 05:59 Dose: 125 mcg Documented By: CIARAN Loperamide HCl (Loperamide Hcl 2 Mg Capsule) 2 mg PO Q4H PRN PRN Reason: Diarrhea Melatonin (Melatonin 3 Mg Tablet) 6 mg PO BEDTIME PRN PRN Reason: Insomnia Pt Own (Testosterone 20.25 Mg/1.25 Gram (1.62 %) Gel In Metered-Dose Pum 1 pump TOPICAL DAILY [facility] Last Admin: 04/19/23 09:40 Dose: 1 pump Documented By: MELLY Pt Own ( Hydrocortisone 5 Mg Tablet) 7.5 mg PO BEDTIME [facility] Last Admin: 04/18/23 19:59 Dose: 7.5 mg Documented By: CIARAN Ondansetron HCl (Ondansetron Hcl 4 Mg/2 Ml Vial) 4 mg IVPUSH Q8H PRN PRN Reason: Nausea and Vomiting Sodium Bicarbonate (Sodium Bicarbonate 650 Mg Tablet) 650 mg PO BID [facility] Last Admin: 04/19/23 09:38 Dose: 650 mg Documented By: MELLY Sodium Chloride (0.9 % Sodium Chloride Flush 3 Ml Syringe) 3 ml IVFLUSH QSHIFT [facility] Last Admin: 04/19/23 08:16 Dose: Not Given Documented By: MELLY Non-Admin Reason: IV Running Tamsulosin HCl (Tamsulosin Hcl 0.4 Mg Capsule) 0.8 mg PO DAILY [facility] Last Admin: 04/19/23 09:37 Dose: 0.8 mg Documented By: MELLY Labs 04/19/23 06:01 04/19/23 06:01 Labs: Laboratory Results - last 24 hr 04/19/23 06:01 MCV 76.0 L MCH 24.0 L MCHC 31.6 RDW 19.9 H Plt Count 218 MPV 10.6 Absolute Nucleated RBC 0.000 Nucleated RBC % (auto) 0.0 Anion Gap 11 L Estim Creat Clear Calc 90.8 Estimated GFR > 60 Fasting Glucose 75 Calcium 7.4 L Microbiology Microbiology Results: Microbiology 04/13/23 13:45 Blood Culture - Final Blood - Venous No growth after 5 days. 04/13/23 13:38 Blood Culture - Final Blood - Venous No growth after 5 days. Assessment and Plan (1) Clostridium difficile colitis: Status: Acute Plan 58M PMH erdheim jasmin disease, panhypopituitarism, hypothyroid, hypogonadism, diabetes insipidus, cerebellar ataxia, optic neuropathy, dysarthria, autonomic dysfunction, hydrocephalus, htn, chronic constipation, osteoporosis, kidney stones, ureteral stents, bph, urinary retention, depression, and anxiety, presented with weakness, hypotension. hypotension, dehydration, acute hypokalemia, acute metabolic encephaloapthy, hypernatremia, hypomagnesemia due to cdif colitis dificid diarrhea improving appetite improving will hold ivf fluids and montior labs to see if patient can maintain with po alone hypothyroid synthroid diabetes insipidus with hypernatremia ddavp, monitor bmp acute hypokalemia replaced dvt prophylaxis - lovenox full code reason for continued hospitalization: monitor labs off iv fluids Time Spent With Patient Time: Total time managing care of this patient today ____ minutes. Quality Stroke Does the patient have a stroke diagnosis?: No VTE Prior VTE?: No VTE Risk Level:: Medical - moderate - high VTE Device Contraindication: Treatment Not Indicated VTE Drug Contraindication: N/A - Med Ordered
[2023-04-19] MEDS: Fidaxomicin 200 MG TABLET PO ×2 (11:53→22:46)
--- NOTE | 2023-04-19 15:41 | MHC.CM.PN ---
Spoke with patients Kat. She requested [facility] at discharge. DP home with [facility] via BLS. Discharge is anticipated tomorrow.
[2023-04-19 16:00] VITALS: BP 133/82; PULSE 81; RESP 18; TEMP 36.2; O2SAT 99
[2023-04-19] MEDS: 0.9 % Sodium Chloride Flush 3 ML SYRINGE IVFLUSH ×2 (17:42→20:01)
[2023-04-19 20:00] VITALS: BP 133/75; PULSE 73; RESP 18; TEMP 36.8; O2SAT 93
[2023-04-19] MEDS: Enoxaparin Sodium 40 MG/0.4 ML SYRINGE SUBCUT (20:00)
[2023-04-20] MEDS: Acetaminophen 325 MG TABLET 650 MG PO (03:17)
[2023-04-20 04:00] VITALS: BP 130/83; PULSE 80; RESP 16; TEMP 36.4; O2SAT 95
[2023-04-20] MEDS: Levothyroxine Sodium 125 MCG TABLET PO (06:09)
[2023-04-20 06:26] LABS: Hematocrit 28.8 % (42.0-52.0); Hemoglobin 9.2 g/dl (14.0-18.0); Mean Corpuscular HGB Conc 31.9 g/dl (31.0-36.0); Mean Corpuscular Hemoglobin 24.5 pg (27.0-33.0); Mean Corpuscular Volume 76.8 fL (80.0-98.0); Mean Platelet Volume 10.1 fL (9.4-12.4); Platelet Count 203 X10*3/uL (160-400); Red Blood Count 3.75 X10*6/uL (4.60-5.80); Red Cell Distribution Width 19.9 % (11.0-16.0); White Blood Count 9.9 X10*3/uL (4.8-10.8)
[2023-04-20 06:37] LABS: Alanine Aminotransferase 7 U/L (0-40); Albumin Level 2.2 g/dL (3.5-5.0); Alkaline Phosphatase 69 U/L (39-117); Anion Gap 12 (12-20); Aspartate Amino Transferase 8 U/L (5-37); Bilirubin Direct 0.2 mg/dL (0.0-0.5); Bilirubin Total 0.4 mg/dL (0.0-1.0); Blood Urea Nitrogen 9 mg/dL (9-16); Calcium 7.7 mg/dL (8.4-10.2); Carbon Dioxide 22 mmol/L (22-29); Chloride 109 mmol/L (96-108); Creatinine Clr Calc Pharmacy 89.7; Estimated Glomerular Filt Rate > 60; Glucose Fasting 78 mg/dL (60-99); Magnesium 1.7 mg/dL (1.6-2.6); Potassium 3.5 mmol/L (3.3-5.1); Sodium 139 mmol/L (135-145); Total Protein 4.8 g/dL (6.5-8.0)
[2023-04-20 07:47] VITALS: BP 147/78; PULSE 60; RESP 20; TEMP 36.4; O2SAT 98
[2023-04-20] MEDS: Tamsulosin HCL 0.4 MG CAPSULE 0.8 MG PO (08:07)
[2023-04-20] MEDS: Hydrocortisone 10 MG TABLET PO (08:08)
[2023-04-20] MEDS: 0.9 % Sodium Chloride Flush 3 ML SYRINGE IVFLUSH (08:08)
[2023-04-20] MEDS: Sodium Bicarbonate 650 MG TABLET PO (08:08)
[2023-04-20] MEDS: Ferrous Sulfate 324 MG TABLET.DR PO (08:08)
--- NOTE | 2023-04-20 10:25 | P.DS_ITS ---
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 by evaluation at [facility] [place] & [facility], after having had progressive symptoms since the ; 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, non-Langerhans histiocytic myeloid progenitor neoplasm, with [employer] SPECIALIST and osseous involvement, followed by [facility] [place] / [facility] in [place],?on a clinical trial medication?-?Cobimetinib) with sequelae of?panhypopituitarism, hypothyroidism, hypogonadism, diabetes insipidus, cerebellar ataxia, optic neuropathy (legally blind), ?dysarthria, ?autonomic dys function, hydrocephalus s/p?left cerebellar mass resection (07/2011, at [facility] [place]) and s/p [employer]ICIAN shunt placement (08/2013, at [facility] [place]), hypertension,?chronic constipation, osteoporosis with numerous compression?fractures, kidney stones s/p cystoscopy & left ureteral stent (06/2022, Dr. Simms), cystoscopy & right ureteral stent x 2 (12/2022, Dr. Obrien; 01/2023, Dr. Cramer), BPH, urinary retention, depression, and anxiety who presents to the ED for evaluation of presyncopal episode, altered mental status, and weakness earlier in the day. Pt is minimally verbal at baseline. Majority of HPI taken from chart, provider, and family review. Patient was recently admitted to the hospital on 04/08-04/11 and treated for septic shock secondary to UTI, discharged on Ceftin. states patient initially did very well upon discharge, but when she went to see him this morning she found him so soiled with diarrhea, not making sense, weak, and disoriented. She brought him into the bathroom where he then had a presyncopal episode on the toilet. Blood pressure was noted to be 68/37. They called EMS who found his BP in 80s/60s, improved to 100s/60s after IVF. In the ED BP as low as 103/64. notes patient has not been eating or drinking much since discharge, which has been an ongoing problem for quite some time. Had two other episodes of loose stool yesterday, and has been experiencing some pain with urination. Not complaining of any nausea, vomiting, abdominal pain. No chest pain/pressure, palpitations. In the ED patient was afebrile but tachycardic up to 117, normotensive, in satting at 98% on RA. Labs were significant for leukocytosis of 13.1, stable H&H of 11.1/35.9, sodium 146, potassium 2.6, magnesium 1.5, protein 6.0, albumin 2.8. Renal and hepatic functions WNL. Troponin negative. UA positive for UTI. EKG demonstrated sinus tachycardia of [address] depressions in V3-V6, slightly worse than previous. Pt was treated with IVF, potassium chloride, and cefepime. Pt will be admitted to the hospital for treatment further evaluation of acute metabolic encephalopathy in the setting of UTI. hypotension, dehydration, acute hypokalemia, acute metabolic encephaloapthy, hypernatremia, hypomagnesemia all secondary to cdif colitis. he was started on dificid, diarrhea has been improving as well as appetite. electrolyte abnormalities improved with replacement, tolerating diet, no abdominal pain. Initially thought to have UTI, but urine culture returned with mixed fiorella. Will be discharged home to complete total of 10 days of dificid. He will be di scharged home with VNA. Time Spent with Patient Time attestation: Total time managing care of this patient today ____ minutes. Discharge coordination time: Greater than 30 minutes Quality: Safe Use of Opioids Does Pt have an Active Cancer Diagnosis on the Problem List?: No Quality: Stroke Does the patient have a stroke diagnosis?: No Physical Exam Vital Signs: Vital Signs: Last Vital Signs Temp 97.6 F 04/20/23 07:47 Pulse 60 04/20/23 07:47 Resp 20 04/20/23 07:47 BP 147/78 H 04/20/23 07:47 Pulse Ox 98 04/20/23 07:47 O2 Del Method Room Air 04/20/23 07:47 BMI result Body Mass Index 21.6 Const: General: no acute distress, alert and awake Nutritional Appearance: average body habitus Resp: Effort & Inspection: normal respiratory effort, no respiratory distress and no use of accessory muscles GI: Inspection: No distended Palpation (GI): Soft to palpation DS: Data Data Completed and Pending Labs on day of discharge: Laboratory Results - last 24 hr 04/20/23 06:06 WBC 9.9 RBC 3.75 L Hgb 9.2 L Hct 28.8 L MCV 76.8 L MCH 24.5 L MCHC 31.9 RDW 19.9 H Plt Count 203 MPV 10.1 Absolute Nucleated RBC 0.000 Nucleated RBC % (auto) 0.0 Sodium 139 Potassium 3.5 Chloride 109 H Carbon Dioxide 22 Anion Gap 12 BUN 9 Creatinine 0.82 Estim Creat Clear Calc 89.7 Estimated GFR > 60 Fasting Glucose 78 Calcium 7.7 L Magnesium 1.7 Total Bilirubin 0.4 Direct Bilirubin 0.2 AST 8 ALT 7 Alkaline Phosphatase 69 Total Protein 4.8 L Albumin 2.2 L Discharge Plan Discharge Anticipated Discharge Date/Time: 04/20/23 10:24 Patient Disposition: Home Health Service Discharge Diagnosis: cdif colitis hypokalemia, hypomagnesemia Referrals: Hal Valles MD [Primary Care Provider] - 1 Week Discharge Medications: New Dificid 200 mg Tablet 200 mg PO Q12H 4 Days Qty: 8 0RF Continued hydrocortisone 5 mg tablet 7.5 mg PO BEDTIME desmopressin 10 mcg/spray (0.1 mL) spray with pump 1 spray intranasal BID tamsulosin 0.4 mg capsule 0.8 mg PO DAILY levothyroxine 125 mcg tablet 125 mcg PO DAILY hydrocortisone 10 mg tablet 10 mg PO DAILY testosterone 20.25 mg/1.25 gram (1.62 %) gel in metered-dose pump 1 pump topical QAM sodium bicarbonate 650 mg Tablet 650 mg PO BID Qty: 20 0RF ferrous sulfate 324 mg (65 mg iron) tablet,delayed release (DR/EC) 324 mg PO DAILY Qty: 30 0RF Held methenamine hippurate 1 gram tablet 1 g PO BID Hold Instructions: discuss with PCP to resume Discontinued cefuroxime axetil 500 mg tablet 500 mg PO BID Qty: 10 0RF Discharge Orders: Discharge Order (Routine); Ordered 04/20/23 Ordered By: Nahed Hidalgo Activity on Discharge: As tolerated Stand Alone Forms: Patient Portal Discharge page Care Plan Goals: see below Health Concerns: cdif colitis hypernatremia, hypokalemia, hypomagnesemia Plan of Treatment: complete course of antibiotics as prescribed call to schedule follow up appointment with PCP Assessment: see discharge summary
[2023-04-20] MEDS: Fidaxomicin 200 MG TABLET PO (10:28)
--- NOTE | 2023-04-20 10:36 | W.MHC.F2F ---
Service Date Service Date: 04/20/23 Encounter Date of encounter: 04/20/23 Reasons for Services Signs and symptoms assessed: needs longterm for medication management, monitoring vital signs Reason for longterm: medication management MD Overseeing Care: Hal Valles Homebound: Leaving the home is medically contraindicated at this time without the asist of a device and/or another person due th the listed conditions above and below. Reason homebound: weakness related to hospital stay Certification: Based on the above findings, I certify that this patient is confined to the home and needs intermittent longterm care, physical therapy and/or speech therapy, or continues to need occupational therapy. The patient is under my care, and I have initiated the establishment of the plan of care. The patient will be followed by a physician who will periodically review the plan of care. Time Spent With Patient Time: Total time managing care of this patient today ____ minutes.
--- NOTE | 2023-04-20 10:58 | MHC.CM.PN ---
DP: PT HAS BEEN MEDICALLY CLEARED FOR DC HOME WITH [facility] FOR SN. /HCP LOY IS AWARE AND AGREEABLE. RN AWARE. REQUESTS [facility] FOR PT VIA BLS. BLS TRANSPORT BOOKED FOR 3:30 PM VIA [facility]. IMM ADDRESSED AND [facility] UPDATED ON TODAY'S DC.
--- NOTE | 2023-04-20 11:49 | PC.NURSE ---
Called Pt , HCP, updated about D/C, pt agrees, understands discharge, will send paperwork with patient EMT at discharge.
--- NOTE | 2023-04-20 17:24 | PC.NURSE ---
Pt's wifes friend in ED and took medications for patient home that was left here after EMS has left. PT HCP gave permission for medication to be given to friend to return home.
== END 2023-04-20 17:24 | disposition home health service (06) | DRG 871 ==
LOC: HO.ED 16:51 → HO.EDOVER 19:12 → HO.S3 19:32
PROVIDERS: Internal Medicine; Physician Assistant; Admitting Provider Student in an Organized Health Care Education/Training Program; Emergency Provider Emergency Medicine; PCP Family Medicine; Visit Provider Physician Assistant Medical
DX: A41.9 Sepsis, unspecified organism (principal); G93.41 Metabolic encephalopathy; A04.72 Enterocolitis due to Clostridium difficile, not specified as recurrent; E23.2 Diabetes insipidus; R62.7 Adult failure to thrive; E88.89 Other specified metabolic disorders; N40.0 Benign prostatic hyperplasia without lower urinary tract symptoms; G90.9 Disorder of the autonomic nervous system, unspecified; E03.9 Hypothyroidism, unspecified; R13.10 Dysphagia, unspecified; E86.0 Dehydration; E83.42 Hypomagnesemia; E88.9 Metabolic disorder, unspecified; Z79.890 Hormone replacement therapy; Z79.899 Other long term (current) drug therapy
CPT/HCPCS: 36415; 80048; 80076; 81001; 83540; 83605; 83735; 84484; 85007; 85025; 85027; 87040; 87086; 87324; 87493; 87507; 92950; 93005; 99285; J0692; J1650; J3475

== ENCOUNTER → 2023-04-13 19:11 | Outpatient (BNV) | payer MEDICARE, MEDICAID, SELFPAY | PROVIDERS: Admitting Provider Student in an Organized Health Care Education/Training Program; Emergency Provider Emergency Medicine; Visit Provider Student in an Organized Health Care Education/Training Program | DX: A04.72 Enterocolitis due to Clostridium difficile, not specified as recurrent (principal) | CPT/HCPCS: 99223; 99233; 99239; G0180 ==